=== PATIENT | female | born 1975 | race Caucasian/White ===

== ENCOUNTER → 2021-12-05 15:14 | Outpatient (BNVA) | payer OTHER, SELFPAY | PROVIDERS: PCP Internal Medicine; Visit Provider Hospitalist | DX: R06.00 Dyspnea, unspecified (principal); R07.9 Chest pain, unspecified | CPT/HCPCS: 94618 ==

== ENCOUNTER → 2021-12-08 08:31 | Outpatient (REF) | payer OTHER, SELFPAY ==
--- NOTE | 2021-12-08 08:42 | ECG_ITS ---
Test Reason : cp Blood Pressure : / mmHG Vent. Rate : 059 BPM Atrial Rate : 059 BPM P-R Int : 130 ms QRS Dur : 078 ms QT Int : 386 ms P-R-T Axes : -10 071 045 degrees QTc Int : 382 ms Sinus bradycardia Otherwise normal ECG No previous ECGs available Referred By: Bo Izquierdo Electronically Signed By:PRESLEY VELAZQUEZ MD
== END ==
LOC: HO.CARD 08:31
PROVIDERS: PCP Internal Medicine; Visit Provider Hospitalist
DX: R07.9 Chest pain, unspecified (principal)
CPT/HCPCS: 93005

== ENCOUNTER 2022-01-10 13:45 | Outpatient (REF) | payer OTHER, SELFPAY ==
--- NOTE | 2022-01-10 | PFT_ITS ---
FLOWS: FEV1 94% of predicted at 2.51 L. FVC 88% of predicted at 2.93 L. FEV1 to FVC ratio of 0.86. No bronchodilator response. LUNG VOLUMES: Total lung capacity 93% of predicted at 4.45 L. Residual volume 77% of predicted at 1.29 L. Slow vital capacity 102% of predicted at 3.16 L. Expiratory reserve volume 65% of predicted at 0.64 L. Diffusion capacity is normal. IMPRESSION: No obstructive or restrictive ventilatory defect. No bronchodilator response. Essentially, normal pulmonary function test. Kodi Yap MD AP/MODL / [id number]
[2022-01-10 15:41] LABS: MANUAL DIFF FLAG NO
[2022-01-10 15:48] LABS: Basophils Percent Auto 0.3 % (0-2); Eosinophils Absolute Auto 0.2 X10*3/uL (0.0-0.4); Eosinophils Percent Auto 1.8 % (0-4); Hematocrit 41.9 % (37.0-47.0); Hemoglobin 13.3 g/dl (12.0-16.0); Imm Gran Abs Auto 0.02 X10*3/uL (0.00-0.03); Imm Gran Pct Auto 0.2 % (0.0-0.4); Lymphocytes Absolute Auto 3.5 X10*3/uL (1.2-4.9); Lymphocytes Percent Auto 38.4 % (20-40); Mean Corpuscular HGB Conc 31.7 g/dl (31.0-35.0); Mean Corpuscular Hemoglobin 25.7 pg (27.0-33.0); Mean Platelet Volume 11.1 fL (9.4-12.3); Monocytes Absolute Auto 0.6 X10*3/uL (0.1-1.2); Monocytes Percent Auto 6.8 % (2-11); Neutrophils Absolute Auto 4.7 x10*3/uL (2.0-8.3); Neutrophils Percent Auto 52.5 % (45-73); Platelet Count 246 X10*3/uL (160-400); Red Blood Count 5.17 X10*6/uL (4.20-5.50); Red Cell Distribution Width 13.2 % (11.0-16.0)
[2022-01-10 16:06] LABS: D Dimer High Sensitivity < 150 NG/ML
[2022-01-10 16:11] LABS: Anion Gap 12 (12-20); Blood Urea Nitrogen 15 mg/dL (9-16); Calcium 9.5 mg/dL (8.4-10.2); Carbon Dioxide 26 mmol/L (22-29); Chloride 104 mmol/L (96-108); Estimated Glomerular Filt Rate > 60; Glucose Random 98 mg/dL (60-115); Potassium 4.2 mmol/L (3.3-5.1); Sodium 138 mmol/L (135-145)
[2022-01-10 16:30] LABS: Erythrocyte Sedimentation Rate 7 MM/HR (0-20)
[2022-01-11 11:07] LABS: Immunoglobulin E 31 kU/L (<OR=114)
== END 2022-01-10 13:46 | disposition home or self-care (01) ==
LOC: HO.RESP 13:45
PROVIDERS: PCP Internal Medicine; Visit Provider Hospitalist
DX: R06.00 Dyspnea, unspecified (principal); R07.9 Chest pain, unspecified
CPT/HCPCS: 36415; 80048; 82785; 85025; 85379; 85652; 94060; 94727; 94729

== ENCOUNTER 2022-02-03 12:52 | Outpatient (REF) | payer OTHER, SELFPAY ==
--- NOTE | ~2022-02-03 | CT_ITS ---
EXAMINATION: CT CHEST WITHOUT CONTRAST CLINICAL INFORMATION: Dyspnea. COMPARISON: None. TECHNIQUE: Multidetector volumetric CT imaging of the chest was done. Axial MIP volume rendering provided. Sagittal and coronal reformatted images were obtained. This CT examination was performed using dose optimization techniques as appropriate, variously including the following: *Automated exposure control *Adjustment of mA and/or kV according to patient size (this includes techniques or standardized protocols for targeted exams where dose is matched to indication/reason for exam; i.e. extremities or head) *Use of iterative reconstruction technique DLP: 299 mGy-cm FINDINGS: BOAT LOADER: Unremarkable. LUNGS: The lungs are well expanded and clear of acute process. There is a 2 mm nodule right upper lobe peripherally based axial image 181/9, a 4 mm nodule left major fissure axial image 258/9, a 3 mm nodule right lower lobe pleural-based axial image 328/9. MEDIASTINUM: The thyroid lobes are symmetrical and normal. The central trachea and the bronchi are widely patent. The heart size and the great vessels are normal caliber. There is no pericardial effusion. No abnormal-sized mediastinal or hilar lymph nodes seen. PLEURA: There is no pleural effusion. No pleural mass or thickening. AXILLA: There are small shotty bilateral axillary lymph nodes. The chest wall is unremarkable. UPPER ABDOMEN: There are small hypodense lesions visualized in the spleen and appear unremarkable. There is no intrahepatic ductal dilatation. Visualized spleen, pancreas and bilateral adrenal glands are unremarkable. OSSEOUS STRUCTURES: No lytic or sclerotic process seen. CT/CT chest wo con IMPRESSION: Small pulmonary nodules and left intrafissural nodule likely a lymph node. The lungs are clear. Fleischner guidelines were followed.
== END 2022-02-03 12:53 | disposition home or self-care (01) ==
LOC: HO.CT 12:52
PROVIDERS: Visit Provider Hospitalist
DX: R07.9 Chest pain, unspecified (principal); R06.00 Dyspnea, unspecified
CPT/HCPCS: 71250

== ENCOUNTER → 2022-02-24 14:26 | Outpatient (BNVA) | payer OTHER, SELFPAY | PROVIDERS: PCP Internal Medicine; Visit Provider Hospitalist | DX: R06.00 Dyspnea, unspecified (principal); R07.9 Chest pain, unspecified ==

== ENCOUNTER → 2022-08-28 08:20 | Outpatient (BNVA) | payer OTHER, SELFPAY | PROVIDERS: PCP Internal Medicine; Visit Provider Hospitalist | DX: R06.00 Dyspnea, unspecified (principal); R00.0 Tachycardia, unspecified; R91.1 Solitary pulmonary nodule | CPT/HCPCS: 94618 ==

== ENCOUNTER → 2022-10-04 10:40 | Outpatient (REF) | payer OTHER, SELFPAY ==
--- NOTE | 2022-10-04 10:45 | CA_ITS ---
Acquisition Time: 2022-10-04 10:49:37 Total Exercise Time: 00:06:00 Test Indications: TACHYCARDIA, SOB Medications: SEE CHART Protocol: GLENN Max HR: 181 BPM 105% of Pred: 171 BPM Max BP: 164/066 mmHG Max Work Load: 7.0 METS Exercise stress test with exercise 6 min of Glenn protocol, achieving 95% MPHR, 7 METs, with fatigue and mild to moderate sob with request to stop, no chest discomfort, without arrythmia during exercise, with few isolated PVCs noted in recovery, with normotensive response to exercise, without EKG changes meeting criteria for ischemia. Echo images obtained at rest and immediately post peak exercise. Definity contrast used. In recovery her breathing improved to normal. Test reviewed with Dr Magallanes. Referred By: Bo Izquierdo Overread By: YAHIR LAUREN
== END ==
LOC: HO.CARD 10:40
PROVIDERS: Visit Provider Hospitalist
DX: R06.00 Dyspnea, unspecified (principal)
CPT/HCPCS: 93350; Q9957

== ENCOUNTER → 2022-10-23 08:12 | Outpatient (REF) | payer OTHER, SELFPAY ==
--- NOTE | 2022-10-23 08:15 | CA_ITS ---
Transthoracic Echocardiogram Patient (Last, First, Middle): Katty Boss, Gender: Female Date of : 1975 Age: 47 Procedure Date: 10/23/2022 Procedure Type: Transthoracic Echocardiogram Location: OP Height: 157.48 cm Weight: 63.5 kg BSA: 1.64 m2 Heart Rate: bpm BP: 122 / 88 mmHg Injector Assembler: EDUAR Referring MD: Bo Izquierdo MD Symptoms: I27.20 - Pulmonary hypertension, unspecified Study Quality: Adequate ECG Rhythm: Sinus Conclusions: - The left ventricular systolic function is normal. The calculated ejection fraction is 58% by biplane method. - No obvious valvular pathology seen on this study. Findings Left Ventricle Normal left ventricular cavity size. There is normal left ventricular wall thickness. The left ventricular systolic function is normal. The calculated ejection fraction is 58% by biplane method. There is no evidence of regional wall motion abnormalities. Diastolic function is normal for age. LV peak GLS -18.7%. Right Ventricle Normal right ventricular cavity size and systolic function. Atria Both atria are normal in size. Aortic Valve There is a normal trileaflet aortic valve. There is no aortic valve stenosis. There is no aortic valve regurgitation. Mitral Valve The mitral valve appears normal. There is no mitral valve regurgitation. There is no mitral valve stenosis. Pulmonic Valve The pulmonic valve is likely normal. Tricuspid Valve Normal tricuspid valve structure. There is trace tricuspid valve regurgitation. There is no evidence of pulmonary hypertension. Great Vessels The aortic annulus, sinuses of valsalva, and asc aorta are normal in size. Venous The inferior vena cava is normal in size and collapses greater than 50% with inspiration. Pericardium/Pleural There is no evidence of pericardial effusion. Prior Study Comparison No prior study available for comparison. Recommendations, Care & Conclusions No obvious valvular pathology seen on this study. Measurements 2D Linear Measurements IVSd: 0.64 0.6-0.9/0.6-1.0 cm LVIDd: 4.78 3.9-5.3/4.2-5.9 cm LVIDd Index: 2.91 2.4-3.2/2.2-3.1 cm/m2 LVIDs: 2.85 2.0-3.6 cm LVPWd: 0.71 0.7-1.1 cm LA Diam: 3.00 2.7-3.8/3.0-4.0 cm LAIDs Index: 1.83 1.5-2.3 cm/m2 LV Mass: 125.74 67-162/88-224 g LV Mass Index: 76.67 43-95/49-115 g/m2 LVOT Diam: 2.00 3.0+(-)1.3 cm 2D Systolic Function EF 4C: 57.30 >55% EF 2C: 58.40 >55% EF BiP: 57.70 >55% Mitral Valve MV Pk E: 0.62 MV PK A: 0.49 MV Decel Time: 192.00 E/A: 1.30 E'Lateral: 11.00 E'Medial: 7.72 E/E' Med: 8.00 E/E' Lat: 5.60 PHT: 56.00 MVA PHT: 3.93 Decel [place]: 3.22 Aortic Valve AoV Pk Marshall: 1.25 AoV Mn Marshall: 0.94 AoV VTI: 0.30 AoV Pk Grad: 6.00 Aov Mn Grad: 4.00 ALEXANDER Cont.VTI: 2.17 LVOT LVOT Pk Marshall: 0.91 LVOT Mn Marshall: 0.59 LVOT VTI: 0.21 LVOT Pk Grad: 3.00 LVOT Mn Grad: 2.00 LVOT Diam: 2.00 LVOT Area: 3.14 Diastolic Function MV Pk E: 0.62 MV Pk A: 0.49 E/A: 1.30 E'Medial: 7.72 E/E' Med: 8.00 E' Laterial: 11.00 E/E' Lat: 5.60 Right Ventricle TAPSE (mm): 19.70 Tricuspid Valve TR Pk Marshall: 1.59 TR Pk Grad: 10.00 RA Press: 3.00 RVSP: 13.00 Great Vessels Aorta Sinus of Valsalva: 3.04 2.0-3.[address] [place]: 2.44 1.7-3.4 cm Ao Asc: 2.70 2.1-3.4 cm Ao Arch: 2.20 Updated in Other Vendor System with Status of Final Adrian Magallanes MD electronically signed on 10/23/2022 4:06:52 PM with status of Final
== END ==
LOC: HO.CARD 08:12
PROVIDERS: Visit Provider Hospitalist
DX: I27.20 Pulmonary hypertension, unspecified (principal)
CPT/HCPCS: 93306; 93356

== ENCOUNTER 2023-02-22 12:44 | Outpatient (REF) | payer OTHER, SELFPAY ==
--- NOTE | ~2023-02-22 | CT_ITS ---
EXAMINATION: CT CHEST WITHOUT CONTRAST CLINICAL INFORMATION: Follow-up pulmonary nodule COMPARISON: Previous chest CT January 2022 TECHNIQUE: Multidetector volumetric CT imaging of the chest was done. Axial MIP volume rendering provided. Sagittal and coronal reformatted images were obtained. This CT examination was performed using dose optimization techniques as appropriate, variously including the following: *Automated exposure control *Adjustment of mA and/or kV according to patient size (this includes techniques or standardized protocols for targeted exams where dose is matched to indication/reason for exam; i.e. extremities or head) *Use of iterative reconstruction technique DLP: 135 mGy-cm FINDINGS: PSYCHIATRIC TECHNICIAN ASSISTANT: Unremarkable LUNGS: Small calcified pulmonary nodules in the right lower lobe measuring 3 mm axial image 286 and right upper lobe measuring 2 mm axial image 156 series 5 are stable. 4 mm peripheral or subpleural left lower lobe nodule adjacent to the fissure axial image 220 series 5 is stable and probably represents a subpleural lymph node. No new pulmonary nodule. No emphysema, interstitial lung disease or bronchiectasis. MEDIASTINUM: The mediastinum is normal. CORONARY ARTERY CALCIFICATION: None visualized on this study. PLEURA: There is no pleural effusion. No pleural mass or thickening. AXILLA: No lymphadenopathy. UPPER ABDOMEN: Stable small low-attenuation liver lesions. OSSEOUS STRUCTURES: Unremarkable. CT/CT chest wo IV con IMPRESSION: Stable small calcified and noncalcified pulmonary nodules. According to Fleischner criteria, no additional follow-up recommended. Fleischner guidelines were followed.
== END 2023-02-22 12:45 | disposition home or self-care (01) ==
LOC: HO.CT 12:44
PROVIDERS: PCP Internal Medicine; Visit Provider Hospitalist
DX: R91.1 Solitary pulmonary nodule (principal)
CPT/HCPCS: 71250

== ENCOUNTER → 2023-03-06 15:18 | Outpatient (BNVA) | payer OTHER, SELFPAY | PROVIDERS: PCP Student in an Organized Health Care Education/Training Program; Visit Provider Hospitalist | DX: U07.1 COVID-19 (principal); R06.00 Dyspnea, unspecified; R00.0 Tachycardia, unspecified; R91.1 Solitary pulmonary nodule; Z87.891 Personal history of nicotine dependence | CPT/HCPCS: 99212 ==

== ENCOUNTER 2025-01-13 14:14 | Outpatient (AMB) | payer OTHER, SELFPAY ==
--- NOTE | 2025-01-13 14:35 | A.OFFVIS_ITS ---
Vital Signs 01/13/25 14:37 Weight 153 lb 3.54 oz BP 122/76 Blood Pressure Location Lt brachial Position Sitting Pulse 104 H Pulse Source Pulse Oximeter Pulse Oximetry (%) 99 Oxygen Delivery Method Room Air Intake Visit Reasons: Asthma Allergies No Known Allergies Allergy (Verified 01/13/25 14:39) Medication List - Last Reconciled 01/13/25 by Ni Whitfield LPN fluticasone propion-salmeterol 115-21 mcg/actuation (Advair HFA) 2 puffs inhalation Q12H 30 days lorazepam 1 mg PO DAILY PRN HPI Comments Details: The patient is a 49 year-old woman presenting with ongoing progressive dyspnea on exertion. Patient states that for the loss several years she has been noticing increasing breathlessness specially when going up a flight of stairs. Although, she has felt her symptoms have gotten worse in the last year. People around her have started commenting that she appears to be short of breath even with minimal activity. She denies ever having a diagnosis of asthma or any other obstructive airway disease. She has never had to use inhalers is never had a cardiac condition that she is aware of. Therefore the patient was referred to Pulmonary for further evaluation. She did have a chest x-ray done at [facility]. We did personally reviewed the x-ray demonstrating no acute disease. The patient denies any exposures of any mold or chemicals or fumes or toxins or farm Exposures. 01/10/2022 the patient is here for a pulmonary follow-up visit. She continues to have the dyspnea on exertion. It is uncomfortable for her. The patient did have pulmonary function studies today which we personally reviewed. Patient overall had relatively normal pulmonary function capacity. although, both her forced vital capacity and the total lung capacity which is slightly low. The patient did have a chest x-ray that I personally reviewed without any significant disease. At this point the patient is concerned that she continues to be symptomatic. We did do blood work including a D-dimer that was negative. The patient was noted have slight decrease in oxygen supplementation when ambulating. Therefore based on her ongoing symptoms and did nondiagnostic results of both the x-ray and PFTs I will request a CT scan of the chest to better address her symptoms. Also reviewed her EKG. No significant findings noted. The patient will benefit from a cardiac evaluation for undergoing a cardiopulmonary exercise tolerance test in case of the etiology of her symptoms are still unclear. 02/24/2022 the patient is here for a pulmonary follow-up visit. Overall she is doing better. Her shortness of breath has slowly improved. She continues to exercise regularly without significant limitations of her breathing. we did review her pulmonary function studies which were reassuring without any obstructive nor restrictive ventilatory defects. The patient also underwent a CT scan of the chest with demonstrating normal lung parenchyma. However, she did have a small subcentimeter pulmonary nodule that will need follow-up in a year's time. Patient will continue exercising regularly. If the patient has persistent symptoms or any worsening symptoms, then we can consider a cardiopulmonary stress test to further address the issues. In the meantime though I am reassured that her symptoms are better and I am hopeful that she will continue improving. 08/28/2022 the patient is here for pulmonary follow-up visit. Initially she was feeling better with less shortness of breath. When she started developing worsening shortness of breath again. Typically with minimal activity. Specially when going up a flight of stairs or ill. She has moderate shortness of breath the point that she needs to stop she is doing. She also has a hard time speaking when she is walking because she gets also winded. She was concern for lung cancer. Again, we did review her CT scan of the chest demonstrating no significant parenchymal disease in the only finding is small subcentimeter pulmonary nodules. The patient will have another CT scan sometime in February. During the visit we did go for brief walking oximetry in quickly a heart rate went up to 146 beats per minute just going up few steps. The patient was visibly winded with the a dyspnea score of 7/10. The patient has not had a cardiac workup. Her pulse ox was stable throughout. The patient does not have any significant wheezing to benefit from any inhaler therapy. I do believe that a cardiac evaluation is warranted and also would consider a cardiopulmonary exercise tolerance test in the near future. 10/09/2022 the patient is here for pulmonary follow-up visit. She recently had her stress echo. In the meantime she continues to have significant shortness of breath when exerting herself. Initially the results were relatively normal on the stress test report. However, I did get a call from Cardiology and also the echo lab that the pictures were suboptimal and they will need to repeat it. In the meantime I did request that her pulmonary pressures are estimated also during her stress test which they will do when his repeated. Also was recommended that she have a formal echocardiogram. Therefore 1 will be requested. He more breathing standpoint the patient is well when she is resting or walking. She walks a few miles a day. It is small when she is exerting herself the becomes limited. When she did have the stress test she would only meet a MET of 7 which is that low level. The patient also will start a respiratory inhaler to see if this provides some relief. She is also going to start providing Jovanni interval training to increase her aerobic capacity. Once she does have the repeat stress echo and also her formal echo will follow-up with results. 03/06/2023 the patient is here for a pulmonary follow-up visit. The patient overall is doing about the same. Still complaining of dyspnea with minimal activity he had also significant palpitations. The patient did follow-up with Cardiology. We do not hyperinflation as of yet. The patient is scheduled to [facility] a cardiopulmonary exercise stress test. I do believe that this will be helpful trying to delineate her symptoms. I will not provide her any medications at this time specially until after the study. She continues to have some degree of daytime drowsiness. She already has sleep study demonstrating no evidence of any sleep apnea to wire about. She also had a repeat CT scan of the chest demonstrating stable pulmonary nodules which is reassuring. The patient also underwent pulmonary function studies demonstrating no significant disease. I did recommend pulmonary rehabilitation at this time specially for post COVID syndrome. Will plan to follow-up in 6 months time. 01/13/2025 the patient is here for pulmonary follow-up visit. The patient is still complaining of dyspnea on exertion. Even with minimal activities specially will go a flight of stairs. She gets very winded. Again she had a cardiac evaluation at some point. We also did a full workup without any significant findings. Her cardiopulmonary exercise tolerance test suggested a respiratory reserve limitation. But when we went on our own brief walking oximetry up the stairs she does get dyspneic with dyspnea score 6/10 and heart rate does go up to about 150 beats per minute with minimal activity. Therefore need to consider underlying exercise-induced pulmonary hypertension as a potential diagnosis. Will go ahead and request blood work including a BNP to see this evidence of any cardiac strain. [facility] Medical History (Updated 01/13/25 @ 14:46 by Bo Izquierdo MD) COVID-19 Tachycardia Pulmonary nodule Dyspnea Chest pain Social History Patient Tobacco Use Status: Former Tobacco user Tobacco use type: Cigarette Years Smoked: 5 Years Review of Systems Const Denies night sweats ENT Denies change in voice, Denies lip swelling, Denies mouth pain, Reports nasal congestion and Denies tongue swelling Card Denies chest pain and Reports dyspnea on exertion Resp Denies cough and Reports dyspnea on exertion GI Denies abdominal pain Musc Denies no additional complaints Neuro Denies Neuro-related abnormal movements Psych Denies no additional complaints Liborio/Lymph Denies easy bleeding and Denies lymphadenopathy Aller/Immun Denies lip swelling and Denies tongue swelling Physical Exam Vital Signs: Last Vital Signs Pulse 104 H 01/13/25 14:37 BP 122/76 01/13/25 14:37 Pulse Ox 99 01/13/25 14:37 Oxygen Delivery Method Room Air 01/13/25 14:37 Const General: alert Neck Neck: Yes normal visual inspection, Yes full ROM and Yes no lymphadenopathy Chest Chest palpation & inspection: normal inspection of the chest Resp Auscultation: clear to auscultation bilaterally Cardio Rate: regular rate Rhythm: regular rhythm Heart sounds: S1 normal heart sound present and S2 normal heart sound present Skin General skin exam: rashes and/or lesions noted Assessment & Plan Assessment & Plan (1) Dyspnea: Code(s): R06.00 - Dyspnea, unspecified Category: Medical Qualifiers: Dyspnea type: dyspnea on exertion Qualified Code(s): R06.09 - Other forms of dyspnea (2) Tachycardia: Code(s): R00.0 - Tachycardia, unspecified Category: Medical (3) Pulmonary nodule: Code(s): R91.1 - Solitary pulmonary nodule Category: Medical Plan bloodwork and ddimer start Airsupra as needed Further evaluation for tachycardia warranted. ?exercise induced pulmonary HTN, diastolic dysfuction, anemia, SVT, post covid POTS follow-up in 3 months Orders: Orders Erythrocyte Sedimentation Rate Today R00.0 - Tachycardia, unspecified, R06.09 - Other forms of dyspnea D Dimer High Sensitivity Today R00.0 - Tachycardia, unspecified, R06.09 - Other forms of dyspnea Complete Blood Count Auto Diff Today R00.0 - Tachycardia, unspecified, R06.09 - Other forms of dyspnea Basic Metabolic Panel Today R00.0 - Tachycardia, unspecified, R06.09 - Other forms of dyspnea TSH reflex Free T4 Today R00.0 - Tachycardia, unspecified B Type Natriuretic Peptide Today R00.0 - Tachycardia, unspecified Medications: New albuterol-budesonide 90-80 mcg/actuation (Airsupra) 2 inhalations inhalation BID PRN 10.7 grams 11RF shortness of breath Coding Level of Care Code Est Pt Level 4 (04928) Diagnoses Dyspnea on exertion R06.09 Dyspnea type: dyspnea on exertion Tachycardia R00.0 Pulmonary nodule R91.1 Time Spent (min) 18
[2025-01-13 14:37] VITALS: BP 122/76; PULSE 104; O2SAT 99
--- OUTSIDE RECORDS SUMMARY | 2025-01-13 17:59 | XMS_ITS | Patient Health Record ---
Author Organization [facility] Address [address] [place] [address] Care Team Providers Care Metrology Engineer Name Role Phone Fritz Gusman MD, Crystal Coleman Primary Care Prov ider Unavailable Clarice Johns Unavailable [phone] Allergies No Known Allergies Reason For Referral No Information Medications Medication SIG (Take, Route, Fr equency, Duration) Notes Start Date End Date Status LORazepam 1 MG 1 tablet at bedtime as needed Orally Once a day Active Work Note . . . Patient off 08/08/22 08/07/2022 Active Omeprazole 20 MG 1 capsule 30 minutes before morning meal Orally Once a day for 30 day(s) Active Social History Tobacco Use: Social History Observation Description Date Details (start date - stop date) Never Smoker NA - NA Tobacco Use/Smoking Question Answer Notes Are you a: nonsmoker Additional Findings: Tobacco Non-User Current no n-smoker Alcohol Screen Question Answer Notes Did you have a drink containing alcohol in the p ast year? Yes Points 0 Interpretation Negative Tobacco use other than smoking: Question Answer Notes Are you an other tobacco user? No Problems Problem Type SNOMED Code ICD Code Onset Dates Problem Status W/U Status Risk Notes Problem [id number] Hallux valgus (acquired), right foot (M20.11) Active confirmed Problem [id number] Osteoarthritis o f right ankle and foot (M19.071) Active confirmed Plan Of Treatment Pending Test Test Name Order Date X ray : Foot, right 3V 06/29/2022 Insurance Providers Payer Name Payer Address Payer Phone Subscriber Number Group Number Insured Name Patient Relationship to Insured Coverage Start Date [facility]age End Date [facility] [address] [place] [phone] [id number] Dom Yap Spouse - patient is the spouse of the insured Medical (General) History Medical History History ICD Code Gastroesophageal reflux disease (GERD) broken bones chicken pox Surgical History Surgery Date(Month/Year) tubal ligation 11/12/2004 Adbomnioplasty 2021
--- OUTSIDE RECORDS SUMMARY | 2025-01-13 17:59 | XMS_ITS | Clinical Summary ---
Author Organization [facility] [address] [facility] Address [address] [place] [address] Phone Care Team Providers Care Social Worker Name Role Phone Danyelle Barba MD Primary Care Provider Social History Tobacco Use Types Packs/Day Years Used Date Smoking Tobacco: Never Assessed Comments Unknown Sex and Gender Information Value Date Recorded Sex Assigned at Not on file Legal Sex Female 11:25 AM EDT Gender Identity Not on file Sexual Orientation Not on file Plan of Treatment Health Maintenance Due Date Last Done Comments Breast Cancer Screening 1975 DTaP,Tdap,and Td Vaccines (1 - Tdap) 1992 Hepatitis B Vaccines (1 of 3 - 19+ 3-dose series) 1992 Cervical Cancer Screening: P ap Smear 1994 Pneumococcal Vaccine: 50+ Ye ars (1 of 1 - PCV) 2023 Zoster Vaccines (1 of 2) 2023 COVID-19 Vaccine ( - 2023-2 5 season) 2024 Influenza Vaccine (#1) 2024 Colorectal Cancer Screening: Colonoscopy 09/06/2024 Depression Screening 09/06/2024 HIV Screening 09/06/2024 Hepatitis C Screening 09/06/2024 Social Influencers of Health Screening 09/06/2024 HIB Vaccines Aged Out No longer eligi ble based on patient's age to complete this topic HPV Vaccines Aged Out No longer eligi ble based on patient's age to complete this topic Hepatitis A Vaccines Aged Out No long er eligible based on patient's age to complete this topic IPV Vaccines Aged Out No longer eligi ble based on patient's age to complete this topic MMR Vaccines Aged Out No longer eligi ble based on patient's age to complete this topic Meningococcal ACWY Vaccine Aged Out N o longer eligible based on patient's age to complete this topic Meningococcal B Vacine Aged Out No lo nger eligible based on patient's age to complete this topic Pneumococcal Vaccine: Pediat rics (0 to 5 Years) and At-Risk Patients (6 to 64 Years) Aged Out No longer eligible b ased on patient's age to complete this topic RSV Immunization Patients Un raj 20 months Aged Out No longer eligible b ased on patient's age to complete this topic Varicella Vaccines Aged Out No longer eligible based on patient's age to complete this topic Care Teams Social Worker Relationship Specialty Start Date End Date Danyelle Barba MD [address] [address] PCP - General Internal Medicine 09/05/24
--- OUTSIDE RECORDS SUMMARY | 2025-01-13 17:59 | XMS_ITS | Data Portability ---
Author Organization [facility], Main Office Address [address] [facility] [address] [place] [id number] Care Team Providers Care Mechanical Engineer Name Role Phone JESU CARRILLO Referring Provider JAME HAYDEN Manager Of It JOSEPHINE PÉREZ Primary Care Provider AMANDA STAUFFER Rehabilitation Engineer Assessment Encounter Date Assessment Date Assessment LastModified by Organization Details LastModified Time 09/26/2022 09/26/2022 This service was provided using telemedicine. Patient consented to video & audio visit Patient was located in the [facility]. Provider was located in the office. No other persons participated in the telemedicine visit except for the patient unless otherwise indicated here. {{}} Total time of visit was 28 minutes. [email or web address] Not available 09/26/2022 16:18:29 07/25/2023 07/25/2023 Katty presents to the office for cough, congestion, and sob. Patient reports of having congestion, fatigue, cough, and SOB x3 days. Has no cardiac and pulm condition hx. Denies fever, chills, v/n. Feels out of breath when walking or talking for a while. Improvements in symptoms with tylenol and ibuprofen. No sick contacts. In office flu and covid were negative. physical exam revealed wheezing in bilateral lower lobes, diminished breath sounds and tenderness to palpation of the sinuses. Based off history and physical, suspecting possible pneumonia or viral infection. Will order a chest xray and give zithromax-zpack , if negative will call pt and cancel zpack. Discussed signs/symptoms that would warrant an ER visit. Discussed to complete medication course. Discussed to call the office if symptoms do not improve/worsen. [email or web address] Not available 07/25/2023 15:38:05 Plan of Treatment Reminders Order Date Submit Date Provider Last Modified By Organization Details Last Modified Time Details Appointments PE EST 2024 08:15A M JOSEPHINE PÉREZ MD Not available Not available Not available Lab lipid panel, serum 2023 024 [email or web address] [facility], [address] [place], [address], 07/07/2024 09:52:44 BMP, serum or plasma 2023 024 BECK [facility], [address], [place], [address], 04/08/2024 14:40:56 CBC w/ auto diff 2023 024 BECK [facility], [address], [place], [address], 04/08/2024 14:40:56 TSH, ultra- sensit helio, serum 2023 024 [email or web address] [facility], [address], [place], [address], 07/07/2024 09:52:44 rapid SARS CoV 2 Ag, QL IA, respir atory specim en 2022 023 [email or web address] In-Office Order, Internal Use Only DO Not Attach Compendium DO Not Attach Compendium, Do Not Delete/merge, [id number] 07/25/2023 14:19:07 rapid flu (A+B) 2022 023 BECK In-Office Order, Internal Use Only DO Not Attach Compendium DO Not Attach Compendium, Do Not Delete/merge, [id number] 07/25/2023 14:39:22 magnes ium, serum or plasma 2021 022 BECK [facility], [address] [facility], [facility], [place], [place], [address], 09/29/2022 20:43:19 BMP, serum or plasma 2021 022 BECK [facility], [address], [address], [place], [address], 09/29/2022 20:43:18 TSH, serum or plasma 2021 022 BECK [facility], [address], [address], [place], [address], 09/29/2022 20:53:58 Referral None record ed. Procedures colono scopy screen ing (PROC) 2023 024 [email or web address] Not available 04/08/2024 15:55:24 Surgeries None record ed. Imaging XR, chest, 2 view 2023 024 [email or web address] Not available 04/22/2024 09:16:17 XR, chest, 2 view - cough, conges tion, wheezi ng x3 days. rule in/out pneumo chanelle 2022 023 [facility], [address] [facility], [place], [address], 07/25/2023 15:24:35 Medication Orders Zithro max Z-Chris 250 mg tablet 2022 023 [email or web address] [id number], [address] [place], [address], 04/08/2024 14:18:01 flucon azole 150 mg tablet 2022 023 [id number], [address] [place], [address], 07/25/2023 13:03:50 famoti dine 20 mg tablet 2022 023 [id number], [address] [place], [address], 07/25/2023 13:06:04 metopr olol tartra te 25 mg tablet 2022 023 [email or web address] [id number], [address] [place], [address], 04/03/2023 08:45:01 predni sone 20 mg tablet 2021 022 [email or web address] [id number], [address] [place], [address], 12/18/2022 13:11:30 Patient TargetsNo targets recorded. Patient Instructions Encounter Date Encounter Id Patient Instructions Last Modified By Organization Details Last Modified Time 09/26/2022 [id number] Medications (OTC , herbal therapies, supplements) reviewed and reconciled with patient and or caregiver, including potential side effects, drug interactions, instructions, and the consequences of not taking medication. Reviewed potential barriers to medication adherence, such as side effects from medication or cost of medication. [email or web address] Not available 09/26/2022 16:37:16 12/18/2022 [id number] Patient will follow up and keep appointment as scheduled. pmadden Not available 12/18/2022 14:04:37 04/03/2023 [id number] Well Visit, Ages 18 to 65: Care Instructions Not available 04/03/2023 09:53:30 medical record request* [email or web address] Not available 04/03/2023 13:19:23 04/08/2024 [id number] Well Visit, Ages 18 to 65: Care Instructions Not available 04/08/2024 14:40:39 Reason for Referral None Reported. Results Created Date Observation Date Name Description Value Unit Range Abnormal Flag Note LastModifiedBy Organization Detail LastModifiedTime 09/29/20 22 09/29/2022 BASIC METAB OLIC PANEL glucose 103 mg/dL (70-99 ) high Not Available [facility] (Centralized Electronic Ordering - All Locations) Patient Can Go To The Location Of Their Choice, [id number] 09/29/2022 20:43:18 09/29/20 22 09/29/2022 BASIC METAB OLIC PANEL BUN 17 mg/dL (6-20) Not Available [facility] (Centralized Electronic Ordering - All Locations) Patient Can Go To The Location Of Their Choice, [id number] 09/29/2022 20:43:18 09/29/20 22 09/29/2022 BASIC METAB OLIC PANEL creatinine 0.7 mg/dL (0.5-1 .0) Not Available [facility] (Centralized Electronic Ordering - All Locations) Patient Can Go To The Location Of Their Choice, 09/29/2022 20:43:18 09/29/20 22 09/29/2022 BASIC METAB OLIC PANEL sodium 139 mmol/ L (133-1 45) Not Available [facility] (Centralized Electronic Ordering - All Locations) Patient Can Go To The Location Of Their Choice, 09/29/2022 20:43:18 09/29/2009/29/2022 BASIC METAB OLIC PANEL potassium 4.0 mmol/ L (3.6-5 .2) Not Available [facility] (Centralized Electronic Ordering - All Locations) Patient Can Go To The Location Of Their Choice, 09/29/2022 20:43:18 09/29/20 22 09/29/2022 BASIC METAB OLIC PANEL chloride 102 mmol/ L (98-10 7) Not Available [facility] (Centralized Electronic Ordering - All Locations) Patient Can Go To The Location Of Their Choice, 09/29/2022 20:43:18 09/29/20 22 09/29/2022 BASIC METAB OLIC PANEL bicarbonate 27 mmol/ L (22-29 ) Not Available [facility] (Centralized Electronic Ordering - All Locations) Patient Can Go To The Location Of Their Choice, [id number] 09/29/2022 20:43:18 09/29/20 22 09/29/2022 BASIC METAB OLIC PANEL anion gap 10 (4-17) Not Available [facility] (Centralized Electronic Ordering - All Locations) Patient Can Go To The Location Of Their Choice, 09/29/2022 20:43:18 09/29/20 22 09/29/2022 BASIC METAB OLIC PANEL calcium 8.8 mg/dL (8.6-1 0.5) Not Available [facility] (Centralized Electronic Ordering - All Locations) Patient Can Go To The Location Of Their Choice, [id number] 09/29/2022 20:43:18 09/29/20 22 09/29/2022 BASIC METAB OLIC PANEL estimated GFR creatinine 108 mL/mi n/1.7 3_M2 Creat inine based estim ated glome rular filtr ation (eGFR ) in adult s is calcu lated using the Natio nal Kidne y Found ation recom keo d 2020 CKD-E PI equat ion. Estim ates GFR from serum creat inine , age and sex. Not Available [facility] (Centralized Electronic Ordering - All Locations) Patient Can Go To The Location Of Their Choice, [id number] 09/29/2022 20:43:18 09/29/2009/29/2022 MAGNE SIUM magnesium 2.0 mg/dL (1.6-2 .3) Not Available [facility] (Centralized Electronic Ordering - All Locations) Patient Can Go To The Location Of Their Choice, [id number] 09/29/2022 20:43:19 09/29/2009/29/2022 TSH WITH REFLE X TO FT4 TSH 0.92 uIU/m L (0.4-4 .2) Not Available [facility] (Centralized Electronic Ordering - All Locations) Patient Can Go To The Location Of Their Choice, [id number] 09/29/2022 20:53:58 07/25/20 23 07/25/2023 rapid flu (A+B) Flu A negati ve Not Available In-Office Order Internal Use Only DO Not Attach Compendium DO Not Attach Compendium, Do Not Delete/merge, [id number] 07/25/2023 13:11:58 07/25/20 23 07/25/2023 rapid flu (A+B) Flu B negati ve Not Available In-Office Order Internal Use Only DO Not Attach Compendium DO Not Attach Compendium, Do Not Delete/merge, [id number] 07/25/2023 13:11:58 07/25/20 23 07/25/2023 rapid SARS CoV 2 Ag, QL IA, respi rator y speci men RAPID SARS COV 2 negati ve Not Available In-Office Order Internal Use Only DO Not Attach Compendium DO Not Attach Compendium, Do Not Delete/merge, [id number] 07/25/2023 13:11:57 04/03/20 23 03/08/2023 MAMMO , scree winter, bilat eral No observ ation record ed. [facility] [employer] [facility] [address] [place], [address], 04/03/2023 10:02:14 07/25/20 23 07/25/2023 XR, chest , 2 view Chest 2 Views Fronta l and Lat Reason : pneumo chanelle, cough, conges tion, wheezi ng x3 days. r o PNA COMPAR COREY: 2020. FINDIN GS: LINES AND TUBES: None. LUNGS AND PLEURA : No focal consol idatio n. Normal pulmon angie vascul arity. No pleura l effusi on. No pneumo thorax . HEART, MEDIAS TINUM AND UBALDO: Unchan ged cardio medias tinal silhou ette. BONES AND SOFT TISSUE S: No acute abnorm ality. IMPRES BRYAN: No acute abnorm ality. WSN: [id number] Orderi ng Physic lindsey: Binta Booth Dictat ed By: Nabil Segura MD er Dictat ed Date/T amina: 3:21 pm Review ed By: Nabil Segura MD er Signed By: Nabil Segura MD er Signed Date/T amina: 3:21 pm Transc ribed By: EBONY Transc ribed Date/T amina: 3:19 pm Patien t Class: Outpat ient [email or web address] [facility] (Outpt Imaging) [address] [place], [address], 07/25/2023 15:36:23 07/25/20 23 07/25/2023 XR, chest , 2 view No observ ation record ed. [email or web address] [facility] [address] [place], [address], 07/27/2023 09:30:42 Result Notes None recorded. Problems Name Problem SNOMED Code Status Onset Date Resolution Date Notes Provider Name and Address Organization Details Recorded Time Screenin g for malignan t neoplasm of cervix Completed 201109/20/2016 RECORDED 04/15/20 12 1:24PM BY FRANCHESCA MAN, OFFICE VISIT Franchesca Man, [place] null, [facility] 6 15:59:04 Neck pain 10992350 Completed 201109/20/2016 IMPRESSI ON: NOW DAILY FOR ONE WEEK, WILL TX WITH FLEXERIL AND START PT; RECORDED 04/15/20 12 1:24PM BY FRANCHESCA MAN, OFFICE VISIT [place] Mcnair, [facility] 6 15:59:29 Follow-u p encounte r Completed 201109/20/2016 RECORDED 07/31/20 12 3:13PM BY JENNA BEARDEN MA, TRANSITI ON OF CARE [place] Mcnair, [facility] 6 15:59:23 Headache 47610206 Completed 201101/08/2017 IMPRESSI ON: PT WITH CONTINUE D DAILY HEADACHE S, COME ON LATER IN [facility], NOW WITH DAILY NECK PAIN FOR THE PAST WEEK. NO VISION ABN, FEELS TIRED AND TINGLING IN FACE BUT STARTED WHEN THE TOPAMAX STARTED. FEELS TIRED WELL. WILLG ET MRI OF HEAD IN 3 DAYS, THEY REFUSED MRA BUT MRI SHOULD BE ENOUGH. WILL IMAGE SINCE NEW HEADACHE S BUT MOST LIKELY FROM NECK PAIN; RECORDED 04/15/20 12 1:24PM BY FRANCHESCA MAN, OFFICE VISIT Crystal mcintyre [facility] 7 16:01:16 Malaise and fatigue 405829145 Completed 201101/08/2017 IMPRESSI ON: TIRED FOR 3 MONTHS, NOT EATING BREAKFAS T, HAVING SOME TENSION HEADACHE S, NOT ENOUGH PROTEIN, EAT 5 SMALL MEALS, CHECK LABS, EXERCISE , WATER, FOLLOW UP 3 MONTHS; RECORDED 04/15/20 12 1:24PM BY FRANCHESCA MAN, OFFICE VISIT Crystal mcintyre [facility] 7 16:01:21 Motion sickness 96170378 Completed 201201/08/2017 RECORDED 02/14/20 13 2:48PM BY CRYSTAL Sher MD, PHONE ENCOUNTE R Crystal mcintyre [facility] 7 16:01:30 Administ ration of bacteria l and viral vaccine Completed 200705/26/2014 RECORDED 01/17/20 08 3:24PM BY SEGUNDO JUAREZ MA, OFFICE VISIT Not Available [facility] 4 13:40:28 Adult health examinat ion Completed 201109/20/2016 IMPRESSI ON: PAP IS UTD, SHOULD DO SOME EXERCISE ; RECORDED 04/15/20 12 2:27PM BY CRYSTAL Sher MD, OFFICE VISIT [place] Mcnair, [facility] 6 15:59:14 Adult health examinat ion Completed 200805/26/2014 RESOLVED DATE: 04/30/20 09; IMPRESSI ON: PAP UTD, EXERCISE MORE; RECORDED 04/30/20 09 3:47PM BY KRISS KOROMA ON/ADDEN DUM [place] Mcnair, [facility] 6 15:59:14 Syncope and collapse 060969488 Completed 201101/08/2017 IMPRESSI ON: SEE HX SOUNDS LIKE VASOVAGA L IN PT DURING A HOT DAY, 2 BEERS, POOR LIQUID INTAKE AND JUST STOOD UP, LABS RECENTLY NL, WILL GET EKG, OK TO DRIVE SINCE HAD PRECIPIT ATING FACTORS, NO SYMPOTMS SINCE, PT OT CALL AND GET SEEN WITH ANY DIZZINES S OR SYNCOPE, WILL PUSH FLUIDS NAD SALTS, SEE ME ONE MONTH, WILL GET MRI OF BRAIN DUE TO SYCOPE AND WEIGHT LOSS; RECORDED 06/12/20 12 4:15PM BY CRYSTAL Sher MD, PHONE ENCOUNTE R Crystal mcintyre [facility] 7 16:01:27 Abnormal weight loss 877532115 Completed 201101/08/2017 IMPRESSI ON: SEE TOP OF NOTE FOR HX, STILL LOSING DESPITE TRYING TO MAINTAIN , NL LABS, NEG CXR, ABDOMINA L US AND PELVIC US INCLUDIN G TRANVAGI NAL. PT WILL BE REFERRED TO GI FOR EVAULATI ON, MOST LIKELY NEEDS UPPER AND LOWER ENDOSCOP Y AND CONSIDER CT OF ABDOMEN AND PELVIS, WILL LET GI DECIDE ON NEXT STEPS. PT WILL DO STOOL GUIAC CARDS SINCE ON MENSES AND DOES NOT WANT EXAM TODAY; RECORDED 06/12/20 12 2:58PM BY CRYSTAL Sher MD, OFFICE VISIT Crystal mcintyre [facility] 7 16:01:19 Candidal vulvovag initis 64170307 Completed 201209/20/2016 RECORDED 05/28/20 13 10:55AM BY JERSON ENCARNACIONBC, NURSE TRIAGE [place] Mcnair [facility] 6 15:59:26 Candidal vulvovag initis 72667061 Completed 201105/26/2014 RECORDED 05/31/20 12 2:43PM BY HUGO ENCARNACION, NURSE TRIAGE [place] Mcnair [facility] 6 15:59:26 Screenin g for malignan t neoplasm of breast Completed 201309/20/2016 RECORDED 04/28/20 14 7:05AM BY CHAGO ARMAS, HISTORIC AL SUMMARY [place] Mcnair [facility] 6 15:59:11 Administ ration of bacteria l and viral vaccine Completed 200706/18/2014 RECORDED 01/17/20 08 3:24PM BY SEGUNDO JUAREZ MA, OFFICE VISIT Not Available [facility] 4 12:10:32 Administ ration of bacteria l and viral vaccine Completed 200706/19/2014 RECORDED 01/17/20 08 3:24PM BY SEGUNDO JUAREZ MA, OFFICE VISIT Not Available [facility] 4 03:32:17 Hypercho lesterol emia 68146007 Completed 01/08/2017 Crystal mcintyre [facility] 7 16:01:14 Lymphade nopathy 71562684 Completed 01/08/2017 Crystal mcintyre [facility] 7 16:01:24 Fatigue 09838517 Completed 01/08/2017 Crystal dennisivanna mcintyre [facility] 7 16:01:32 Hyperlip idemia 95431798 Active 2011 Not Available [facility] 2 00:52:31 Depressi ve disorder 90457523 Completed 201502/19/2019 Crystal Wilfred dennisivanna mcintyre [facility] 9 15:36:59 Mammogra [facility] breast density 902233131 Active 2017 Not Available [facility] 2 00:52:31 Herpes simplex 65431108 Active 2011 Not Available [facility] 2 00:52:31 Dyspnea on exertion 23173471 Active 2020 Not Available [facility] 2 00:52:31 Gastroes ophageal reflux disease 186907275 Active 2021 Not Available [facility] 2 00:52:31 Problem Notes None recorded. Procedures Surgical History Date Name Laterality Status Provider Name and Address Organization Details Recorded Time 4 Most Recent Mammogram completed Franchesca Man MA [facility] 04/08/2024 14:21:46 4 Date of Last Pap Smear completed Franchesca Man MA [facility] 04/08/2024 14:22:24 9 Mammogram both breasts completed Yuliya Zacarias [facility] 10/28/2019 09:34:13 5 Tubal Ligation completed Franchesca Man MA [facility] 08/05/2021 15:45:22 Tubal Ligation completed Franchesca cha MA [facility] 08/05/2021 15:45:22 Imaging Results Imaging Date Name Status [facility]Modified by [facility] Details LastModified Time 03/08/2023 MAMMO, screening, bilateral completed [facility] [employer] [address] [place], [address], 04/03/2023 10:02:14 07/25/2023 XR, chest, 2 view completed [email or web address] [facility] ([facility]) [address] [place], [address], 07/25/2023 15:36:23 07/25/2023 XR, chest, 2 view completed [email or web address] [facility] [address] [place], [address], 07/27/2023 09:30:42 Procedure Notes None recorded. Medical Equipment None Reported. Allergies No known drug allergies Medications Name Sig Start Date Stop Date Status Note LastModified by Organization Details LastModified Time cyclobenz aprine 10 mg tablet TAKE 1 TABLET BY MOUTH THREE TIMES A DAY FOR 5 DAYS 12/18 completed Not Available Not Available Not Available doxycycli ne hyclate 100 mg capsule 12/30 completed Not Available Not Available Not Available azithromy martha 250 mg tablet TAKE 2 TABLETS BY MOUTH TODAY, THEN TAKE 1 TABLET DAILY FOR 4 DAYS 04/08 completed Not Available Not Available Not Available fluconazo le 150 mg tablet TAKE 1 TABLET TODAY DIRECTED FOR YEAST VAGINITI S, MAY REPEAT AFTER 72 HOURS NEEDED. FOR 1 DAY. 07/25 completed Not Available Not Available Not Available valacyclo vir 1 gram tablet 02/19 completed Not Available Not Available Not Available cephalexi n 250 mg capsule Take by oral route for 10 days. 04/26 completed Not Available Not Available Not Available meloxicam 15 mg tablet active Not Available Not Available Not Available metronida zole 0.75 % (37.5 mg/5 gram) vaginal gel Insert 1 applicat orful every 24 hours by vaginal route. 05/30 completed Not Available Not Available Not Available prednison e 20 mg tablet TAKE 3 TABLET DAILY FOR 2 DAYS THEN 2 TABS DAILY FOR 2 DAYS THEN 1 TAB DAILY FOR 2 DAYS 12/18 completed Not Available Not Available Not Available topiramat e 25 mg tablet BID 04/15 completed RECORDED 04/15/20 12 1:26PM BY FRANCHESCA MAN, OFFICE VISIT; Not Available Not Available Not Available metronida zole 500 mg tablet 10/23 completed Not Available Not Available Not Available valacyclo vir 500 mg tablet Take 1 tablet every day by oral route as directed for 90 days. active Not Available Not Available No t Available sulfameth oxazole 800 mg-trimet hoprim 160 mg tablet Take 1 tablet every day by oral route as needed for 30 days. 08/05 completed Not Available Not Available Not Available Macrobid 100 mg capsule Take 1 capsule twice a day by oral route for 7 days. 02/11 completed Not Available Not Available Not Available famotidin e 20 mg tablet TAKE 1 TABLET 2 TIMES DAILY NEEDED active Not Available Not Available No t Available aspirin 325 mg tablet,de layed release TAKE 1 TABLET BY MOUTH EVERY DAY STARTING DAY AFTER SURGERY 04/08 completed Not Available Not Available Not Available clotrimaz ole-betam ethasone 1 %-0.05 % topical cream 08/30 completed Not Available Not Available Not Available sertralin e 25 mg tablet 1 tab QD 04/25 completed Not Available Not Available Not Available omeprazol e 20 mg capsule,d elayed release 1 po bid 07/25 completed PRN Not Available Not Available Not Available lorazepam 1 mg tablet TAKE 1 TABLET BY MOUTH EVERY DAY NEEDED active Not Available Not Available No t Available ibuprofen 600 mg tablet TAKE 1 TABLET (ORAL) 4 TIMES PER DAY FOR 14 DAYS 12/18 completed Not Available Not Available Not Available scopolami ne 1 mg over 3 days transderm al patch APPLY 4 HOURS BEFORE TRIP 02/19 completed RECORDED 05/28/20 13 10:20AM BY CRYSTAL Sher MD, MEDICATI ON AUTO-TE CTIVATIO N; Not Available Not Available Not Available sertralin e 50 mg tablet Take 1 tablet every day by oral route as directed for 90 days. 02/19 completed Not Available Not Available Not Available diazepam 5 mg tablet Take by oral route for 3 days. 04/26 completed Not Available Not Available Not Available amoxicill in 875 mg-potass ium clavulana te 125 mg tablet Take 1 tablet every 12 hours by oral route for 10 days. 12/18 completed Not Available Not Available Not Available oxycodone 5 mg tablet TAKE 1 TABLET BY MOUTH EVERY 4 TO 6 HOURS NEEDED FOR PAIN TO BEGIN AFTER SURGERY. DO NOT DRIVE 04/08 completed Not Available Not Available Not Available cyclobenz aprine 5 mg tablet Take 1 tablet 3 times a day by oral route as needed for 7 days. 08/04 completed Not Available Not Available Not Available metoprolo l tartrate 25 mg tablet TAKE 0.5 TABLETS TWICE A DAY BY ORAL ROUTE NEEDED FOR 30 DAYS. active Not Available Not Available No t Available Valtrex 1 TAB (S), 500MG, ONCE A DAY, 90 DAY(S) 02/19 completed Not Available Not Available Not Available fluticaso ne propionat e 115 mcg-salme terol 21 mcg/actua tion HFA inhaler INHALE 2 PUFFS INTO THE LUNGS EVERY 12 HOURS 07/25 completed Not Available Not Available Not Available diclofena c 1 % topical gel APPLY 2 GRAMS TO THE AFFECTED AREA(S) BY TOPICAL ROUTE 4 TIMES PER DAY active Not Available Not Available No t Available Flowflex COVID-19 Antigen Home Test kit FOLLOW INSTRUCT IONS INCLUDED WITH THE PACKAGE. 04/03 completed Not Available Not Available Not Available Paxlovid 300 mg (150 mg x 2)-100 mg tablets in a dose pack Take 3 tablets twice a day by oral route as directed for 5 days. 09/22 completed Not Available Not Available Not Available Vitals Date Recorded Body height Provider Name an d Address Organization Details Last Updated DateTime 09/26/2022 157.48 cm [place] Marti [facility] 09/26/2022 15:33:21 Date Recorded Heart rate Oxygen saturation Oxygen saturation in Arterial blood by Pulse oximetry Provider Name and Address Organization Details Last Updated DateTime 09/26/2022 82 /min 97 % 97 % Chance Monreal PA-C [address] [address], [place], [address], [place] [facility] 09/26/2022 16:07:36 Date Recorded Body height Body mass index (BMI) Body weight Oxygen saturation Oxygen saturation in Arterial blood by Pulse oximetry Heart rate Body temperature Systolic blood pressure Diastolic blood pressure Provider Name and Address Organization Details Last Updated DateTime 02/06/202 3 157.48 cm 26.6 kg/m2 08685.2 9 g 99 % 99 % 100 /min 98.5 [degF] 128 mm[Hg] 80 mm[Hg] Franchesca Mna MA [facility] 3 13:10:39 Date Recorded Heart rate Provider Name an d Address Organization Details Last Updated DateTime 12/18/2022 88 /min Chance Bradley-Tatyana [address], [address], [facility] 12/18/2022 13:42:11 Date Recorded Body height Body mass index (BMI) Body weight Heart rate Oxygen saturation Oxygen saturation in Arterial blood by Pulse oximetry Body temperature Systolic blood pressure Diastolic blood pressure Provider Name and Address Organization Details Last Updated DateTime 3 157.48 cm 27.3 kg/m2 83442.9 6 g 92 /min 99 % 99 % 98.4 [degF] 120 mm[Hg] 76 mm[Hg] Alexander Ortiz MA [facility] 3 08:47:56 Date Recorded Body height Body mass index (BMI) Body weight Heart rate Oxygen saturation Oxygen saturation in Arterial blood by Pulse oximetry Body temperature Systolic blood pressure Diastolic blood pressure Provider Name and Address Organization Details Last Updated DateTime 3 157.48 cm 27.6 kg/m2 77846.4 5 g 94 /min 98 % 98 % 98.7 [degF] 142 mm[Hg] 89 mm[Hg] Olivia Huddleston MA [facility] 3 13:03:26 Date Recorded Body height Body mass index (BMI) Body weight Oxygen saturation Oxygen saturation in Arterial blood by Pulse oximetry Heart rate Body temperature Systolic blood pressure Diastolic blood pressure Provider Name and Address Organization Details Last Updated DateTime 4 157.48 cm 27.8 kg/m2 02888.4 4 g 98 % 98 % 83 /min 98.3 [degF] 118 mm[Hg] 74 mm[Hg] Franchesca Man MA [facility] 4 14:17:19 Social History Question Answer Notes LastModified by Organizat ion Details LastModified Time Tobacco Smoking Status [facility]2014 15:40:16 What Is Your Level Of Alcohol Consumption? Occasional [email or web address] Information not available 12/09/2014 Is Blood Transfusion Acceptable In An Emergency? Yes [email or web address] Information not available 12/10/2015 What Is Your Level Of Caffeine Consumption? Moderate [email or web address] Information not available 08/04/2020 How Much Tobacco Do You Chew? None [email or web address] Information not available 08/04/2020 Are You Currently Employed? Yes [email or web address] Information not available 12/09/2014 What Type Of Diet Are You Following? REGULAR [email or web address] Information not available 12/09/2014 Do You Or Have You Ever Used E-cigarettes Or Vape? 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 Yes Student Affairs Vice President [email or web address] Information not available 04/26/2022 Live Alone Or With Others? With Others [email or web address] Information not available 04/26/2022 Do You Take Precautions To Prevent Distracted Driving? Yes [email or web address] Information not available 12/10/2015 How Often Do You Need To Have Someone Help You When You Read Instructions, Pamphlets, Or Other Written Material From Your Doctor Or Pharmacy? Never [email or web address] Information not available 08/04/2020 Have You Served In The ? No [email or web address] Information not available 01/08/2017 Have You Or Anyone In Your Household Had Any Of The Following Symptoms In The Last 14 Days: Sore Throat, Cough, Chills, Body Aches For Unknown Reasons, Shortness Of Breath For Unknown Reasons, Loss Of Smell, Loss Of Taste, Fever At Or Greater Than 100 Degrees Fahrenheit? No [email or web address] Information not available 08/04/2020 Are You Or Anyone In Your Household A Health Care Provider Or Emergency Responder? No [email or web address] Information not available 08/04/2020 To The Best Of Your Knowledge Have You Been In Close Proximity To Any Individual Who Tested Positive For COVID-19? No Information not available 08/04/2020 Have You Recently Traveled To A COVID-19 High Risk Area Or Gathering In The Last 10 Days? No [email or web address] Information not available 08/05/2021 What Was The Date Of Your Most Recent Tobacco Screening? 04/08/2024 [email or web address] Information not available 04/08/2024 How Many Children Do You Have? 3 [email or web address] Information not available 12/09/2014 Do You Use Protection During Sex? No [email or web address] Information not available 08/04/2020 What Is Your Relationship Status? [email or web address] Information not available 04/26/2022 Do You Use Your Seat Belt Or Car Seat Routinely? Yes [email or web address] Information not available 08/05/2021 Seat Belts Used Routinely Yes Information not available 04/26/2022 Are You Sexually Active? Yes [email or web address] Information not available 08/04/2020 Smoke Alarm In Home No Information not available 04/26/2022 Do You Have Smoke And Carbon Monoxide Detectors In Your Home? Yes [email or web address] Information not available 08/05/2021 Are You Passively Exposed To Smoke? Yes [email or web address] Information not available 08/04/2020 Do You Or Have You Ever Used Smokeless Tobacco? Never Used Smokeless Tobacco [email or web address] Information not available 08/04/2020 General Stress Level Medium Information not available 04/26/2022 Do You Use Any Illicit Or Recreational Drugs? No Information not available 04/03/2023 Do You Use Sunscreen Routinely? Yes [email or web address] Information not available 12/09/2014 Sex: Unknown Functional Status Question Answer Note LastModified by Organizat ion Details LastModified Time Are you able to walk? YESWOREST [email or web address] Information not available 04/26/2022 Are you able to care for yourself? Yes [email or web address] Information not available 12/09/2014 What is your exercise level? Occasional Information not available 04/03/2023 Mental Status None recorded. Family History Relationship Description Onset Age of this Age Resolved Age Notes LastModified by Organization Details LastModified Time Mother Hypertensive disorder [email or web address] Not available 12/10 15:46:40 Mother Hypercholest erolemia [email or web address] Not available 12/10 15:46:40 Mother Carcinoma in situ of esophagus [email or web address] Not available 04/26 10:37:29 Mother Allergy [email or web address] Not availabl e 08/05/2021 15:45:10 Mother Arthritis [email or web address] Not availa ble 08/05/2021 15:45:10 Father Malignant tumor of pharynx [email or web address] Not available 04/26 10:37:29 Father Asthma [email or web address] Not available 08/05/2021 15:45:10 Maternal Grandmother Rheumatoid arthritis [email or web address] Not available 04/26 10:37:29 Paternal Grandmother Carcinoma of stomach [email or web address] Not available 04/26 10:37:30 Notes:No FH of colon or hussain st cancer Medical History Condition Response Other N Gout N Kidney Stones N Blood Diseases N Hyperthyroidism N Breast Cancer N Depression N COPD N Lung Disease N Hypothyroidism N Defects or Inherited Disease N Anesthesia Complications N Headaches/Migraines N Varicose Veins N Anxiety Disorder Y Obesity N Vision or Eye Problems N Arthritis N Head Injury/Concussion N Polyps N Infertility N Congenital Anomalies N Acid Reflux (GERD) Y Cancer N Stroke N ADHD N Endometriosis N High Cholesterol N Liver Disease N Fibromyalgia N Kidney Disease N Heart Problems N Ear or Hearing Problems N Hospitalizations N Thyroid Problems N GI Problems N Acne N Eating Disorder N Skin Problems N Anemia N Constipation N Bladder Problems Y Mental Illness N Ovarian Cancer N Diabetes N Blood Transfusions N Seizures/Epilepsy N Tuberculosis N AIDS/HIV N Congestive Heart Failure (CHF) N Eczema N Diverticulitis N Abuse/Domestic Violence N Asthma N Allergies N Reflux/GERD Y Hepatitis N Pulmonary Embolism N Hypertension N Chicken Pox N Autism Spectrum Disorder (ASD) N Osteoporosis N Gynecological History Statement/Question Response Date of Last Pap Smear 03/12/2024 Date of Last Colonoscopy Most Recent Mammogram 03/12/2024 Obstetrics History GPAL:G 0 P 0 0 0 0 Immunizations Vaccine Type Date Status Note Provider Name and Address Organization Details Recorded Time Influenza, split virus, quadrivalent, preservative 08/12/20 17 completed Not Available [facility] 12/10/2021 00:52:31 Influenza, split virus, quadrivalent, preservative 08/26/20 18 completed Not Available [facility] 12/10/2021 00:52:32 COVID-19, mRNA, LNP-S, PF, 30 mcg/0.3 mL dose, zuly-sucrose 03/03/20 22 completed CHIQUITA Mcnair, [facility] 09/16/2022 10:44:21 COVID-19, mRNA, LNP-S, PF, 30 mcg/0.3 mL dose 02/08/20 21 completed CHIQUITA Mcnair [facility] 09/16/2022 10:44:21 COVID-19, mRNA, LNP-S, PF, 30 mcg/0.3 mL dose 01/16/20 21 completed CHIQUITA Mcnair [facility] 09/16/2022 10:44:21 influenza, seasonal, intradermal, preservative free 08/12/20 14 completed CHIQUITA Mcnair [facility] 09/16/2022 10:44:21 Influenza, split virus, quadrivalent, PF 08/04/20 20 completed CHIQUITA Bradley [facility] 09/22/2022 10:51:40 Td (adult), 2 Lf tetanus toxoid, preservative free, adsorbed 05/30/20 19 completed CHIQUITA Bradley [facility] 09/22/2022 10:51:40 Influenza, split virus, quadrivalent, PF 12/10/19 16 completed Not Available [facility] 11/29/2019 02:22:02 Influenza, recombinant, quadrivalent, PF 10/11/20 22 completed CHIQUITA Bradley [facility] 07/25/2023 13:06:43 Influenza, split virus, quadrivalent, PF 09/20/20 16 completed Not Available [facility] 11/29/2019 02:22:07 Influenza, split virus, quadrivalent, PF 11/09/20 21 cancelled patient objection Crystal [email or web address] [facility] 11/13/2021 22:40:00 Tdap 01/17/20 08 completed Not Available [facility] 12/10/2021 00:52:32 Past Encounters Encounter ID Performer Location Encounter Start Date Encounter Closed Date Diagnosis/Indication Diagnosis SNOMED-CT Code Diagnosis ICD10 Code Diagnosis Note [id number] auto[employer] erce [address] [facility],[address] [place] [address] 01/17/2008 00:00:00 [id number] autoEComm caylae [address] [facility] [place] [address] 04/22/2009 00:00:00 [id number] autoEComm caylae [address] [facility] [place] [address] 04/30/2009 00:00:00 [id number] [employer] [address]ae [address] [place] [address],[address] [place] [address] 04/15/2012 00:00:00 [id number] auto[employer] caylae [address] [place] [address],[address] [place] [address] 05/27/2012 00:00:00 [id number] [employer] [place] [address] [place] [address],[address] [place] [address] 06/12/2012 00:00:00 [id number] Franchesca Man MA Main Office [address] [address] [place] [address] 12/09/2014 15:18:07 12/09/2014 16:18:41 Adult health examination [id number] pt will get pa p and mammo is utd, is exercising , will add weight training. Hypercholesterolemia 19423033 check fasting [id number] Aravind Granger MD Main Office [address] [address] [place] [address] 05/11/2015 08:40:57 05/11/2015 09:48:34 Lymphadenopathy 11661813 Reassuranc e regarding apparent reactive adenopathy . [id number] Crystal frazier Main Office [address] [address] [place] [address] 12/10/2015 15:17:12 12/10/2015 16:13:20 Adult health examination 009098885 Z00.00 pap and mammo utd, is active, stress with terminally ill mom Needs infl uenza immunization 214660861 Z23 Hypercholesterolemia 136 03103 E78.2 check random Fatigue 66616481 R53.83 see hx, very unlikely but pt is concerned about contractin g HIV from sharing drink with separate star with coworker who had and cleared Hepatitis C with treatment. Will test pt, no other risk factors. [id number] Isabel Salas Main Office [address] [facility] [address] [place] [address] 09/20/2016 15:52:32 09/20/2016 16:40:49 Influenza vaccine needed 9596537056 106 Z23 Anxiety 02265218 F41.9 counseling ot be arranged Insomnia 436863456 G47.0 0 very poor sleep despite spending many hours in bed, treat for sleep Major depr essive disorder 207960464 F32.9 start sertraline , will see pt back next week to check is sleeping better, on sertraline and getting counseling set up, will talkt o Leila here to see if can work her in [id number] Crystal Wilfred frazier Main Office [address] [facility] [address] [place] [address] 09/27/2016 16:20:07 09/28/2016 11:50:30 Anxiety 78773735 F41.9 is in counseling , is taking sertraline 25mg and lorazepam for sleep, had 2 panic attacks, still not functionin g well at home continue counseling increase sertraline to 50mg and return in a month Panic attack 704858337 F 41.0 2 since last visit, uses lorazepam which helps [id number] Crystal Wilfred frazier Main Office [address] [facility] [address] [place] [address] 11/01/2016 14:54:41 11/01/2016 15:36:23 Malaise and fatigue 711996881 R53.83 still not functionin g at baseline, missed soem work, low mood Anxiety 96322850 F41.9 is feeling a bit artificial plastic eye maker, she will increase sertraline to 75mg a day, not in counseling but I strongly encouraged her to, she will think about it, hopefully higher dose can help with motivation [id number] Crystal Wilfred frazier Main Office [address] [facility] [address] [place] [address] 01/08/2017 15:19:46 01/08/2017 16:09:45 Adult health examination 753217803 Z00.00 pap and mammo utd, is active, Insomnia 852657254 G47.0 0 sleeping better, uses lorazepam for sleep, pt is aware and understand s to not use lorazepam in the daytime 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 off meds, pt to watch for any signs of recurrence and restart zoloft if needed and she will let me know if she restarts med [id number] [facility] [address] [address] [place] [address] 10/18/2017 13:57:34 10/18/2017 15:02:47 Acute pharyngitis 444138890 J02.9 neg quick strep, seems viral, rest motrin and fluids [id number] [facility] Main Office [address] [place] [address] [place] [address] 02/19/2019 15:11:50 02/19/2019 16:10:15 Adult health examination 618145357 Z00.00 pap and mammo utd, is active, , exhusband transition ed to female, has teenagers at home, they are doing well Screening for malignant neoplasm of breast 970349428 Z12.39 pt to arrange Urgent mima virgen to urinate 16185425 R39.15 is on abx, feeling better [id number] [facility] Main Office [address] [address] [place] [address] 05/30/2019 09:07:44 05/30/2019 09:59:18 Recurrent urinary tract infection 196927700 N39.0 treated by director of managed care or here, at least 3 this year, pt is also bothered with gardnerell a, abn pap, will drink more fluids and see urology, may need urodynamic s to make sure she is completely emptying and maybe post coital prophylaxi s Requires a tetanus booster 791605388 Z23 Increased frequency of urination 971952353 R35.0 see above Abnormal c ervical Papanicolaou smear 687027626 R87.619 getting a LEEP in 07/31 Gardnerella vaginitis 41 5448172 N76.0 recurrent, is on metrogel 2 times a week by Dr Carrillo due to needing a LEEP [id number] Sharon morrison Main Office [address] [facility] [address] [place] [address] 02/12/2020 10:55:46 02/17/2020 13:50:54 Acute vaginitis 91917798 N76.0 SYMPTOMS: vaginal itching? {{yes* no} } discharge? {{yes* no} } recent antibiotic exposure? {{yes* no} } feels like previous yeast infection? {{yes* no} } POSSIBLE CONTRAINDI CATIONS TO TELEPHONE TREATMENT: pelvic pain? {{yes no*} } fever? {{yes no*} } ? {{yes no*} } pain with intercours e? {{yes no}} PROVIDER ACTION: Reviewed nursing notes? {{yes no}} Recommende d action {{appropri ate for telephone treatment* needs appointmen t}} Treatment {{fluconaz ole x 2 doses, call if not improving. Can supplement with otc cream if needed. Call if not better in a few days. # fluconaz ole terazo l may use over the counter medication s another medication (provider will prescribe) NA}} [id number] Sharon Sepulvedaanais Main Office [address] [address] [place] [address] 06/10/2020 08:48:32 06/10/2020 09:44:51 Low back pain 754148896 M54.5 Rest, stretching at home, start PT program twice a week. Can use mobic in the am and flexeril at night, sleep with pillow under knees or between knees. Likely muscular, call if not better with PT and medication s. If she has continued pain in right leg needs to see for that. I am treating pre existing back pain. If lumps remain tender would send for further evaluation . Time spent > 25 min with > 50% counseling and coordinati on. [id number] Crystal frazier Main Office [address] [facility] [address] [place] [address] 08/04/2020 14:16:01 08/04/2020 15:02:48 Adult health examination 089988263 Z00.00 pap and mammogram are utd, Hyperlipidemia 40727768 E78.5 Needs infl uenza immunization 816413024 Z23 Recurrent urinary tract infection 062793229 N39.0 uses bactrim for prophylaxi s Gastroesop hageal reflux disease 817624485 K21.9 check labs, on meds, [id number] Crystal frazier [facility] [address] [facility] [address] [place] [address] 09/13/2020 13:26:14 09/14/2020 11:07:31 Gastroesophageal reflux disease 067839479 K21.9 neg labs, med has resolved symptoms, keep on for 6 weeks, then stop, if needs to use prn will do that [id number] Crystal frazier Main Office [address] [address] [place] [address] 08/05/2021 15:23:03 08/05/2021 16:17:23 Adult health examination 273142689 Z00.00 pap and mammogram are utd, severe fatigue see below, under stress, Fatigue 51544187 R53.83 see HPI. at end of visit we talked about depression , will get labs, f/u in 11/01. consider tx for depression if no other cause comes clear Dyspnea on exertion 6084 5006 R06.09 rule out anemia, very deconditio mat. start an exercise walking program. [id number] Jovan Valentino MD Main Office [address] [address] [place] [address] 08/30/2021 10:49:35 08/30/2021 11:44:44 Costal chondritis 12504670 M94.0 Neck pain 29712383 M54.2 Appears to be muscular. Possibly related to sleeping position or strain. Treat with exercises, NSAIDs and muscle relaxant. She will call next week if not improving and we will do a referral at that time. [id number] Crystal frazier Main Office [address] [facility] [address] [place] [address] 11/09/2021 15:53:55 11/09/2021 16:18:23 Needs influenza immunization 204666630 Z23 declined Dyspnea on exertion 6084 5006 R06.09 LAbs done 08/02 ruled out anemia and hypothyroi d, , very deconditio mat. start an exercise walking program. will evaluate with CXR and pulmonary referral ? adult onset asthma Gastroesop hageal reflux disease 924685729 K21.9 continue meds [id number] Sharon Abdi Main Office [address] [facility] [address] [place] [address] 04/26/2022 10:37:12 04/26/2022 11:19:05 Pain in toe 004453410 M79.674 check xray to rule out fracture or arthritis. Does not appear inflammato ry, would have her see podiatry for this. Consider labs if xray negative. Not consistent with gout at this time.. Call if worsening [id number] Adan Hill MD Main Office [address] [address] [place] [address] 09/16/2022 08:37:05 09/16/2022 12:02:39 COVID-19 485699399 U07.1 Based on duration of symptoms and comorbidit ies pt is a candidate for antiviral therapy. Common/ser ious potential side effects discussed. Advised to call if noted. Current isolation guidelines based on immunizati on status discussed as well as isolation if rebound infection occurs. Medication s reviewed and dosing adjusted as indicated with Paxlovid. Sore throat 892017699 J0 2.9 Salt water gargling and nasal saline advised. [id number] Adan Hill MD [facility] [address] [address] [place] [address] 09/22/2022 10:16:33 09/22/2022 12:28:33 Acute sinusitis 61882367 J01.90 With second sickening/ onset new sinus symptoms following COVID there is reasonable concern for a secondary bacterial process. Will cover with augmentin. May need imaging and course of steroid if not slowly improving. Advised of common/ser ious potential medication side effects and to call with any problems. [id number] Chance Monreal PA-C [facility] [address] [address] [place] [address] 09/26/2022 13:24:28 10/12/2022 09:06:30 History of SARS-CoV-2 2815164219 41580163 Z86.16 rx'd c paxlovid x 3 days back on 11.5 Acute sinusitis 07237211 J01.90 sinuses feeling better - cont abx as dir, recommend probiotics while on abx see above - will add pred pulse to help c inflammati on of lungs/sinu ses p covid Dyspnea 700967435 R06.00 eric for past year - fol by pulm - reviewed 08.28.22 pulm note - has never rec'd prn alb/unlike ly asthma - has pending stress echo on 10.04, and f/u c pulm on 10.09 however, pt states her eric seems to be getting even worse p covid - even has sob c prolonged talking this past week - see below, will add pred pulse further rev chart - had nl cbc, probnp, bmp back in 3. f/u c me in ~ 3 wks - consider card eval if still no working dx to explain her sxs *will fwd copy of this note to pulm* Palpitations 98326437 R0 0.2 klarissa c exertion - apparently had nl ekg - recheck labs, klarissa check magnesium [id number] Chance STEWARTC Main Office [address] [facility] [address] [place] [address] 12/18/2022 12:50:32 12/18/2022 14:11:14 Palpitations 36988870 R00.2 klarissa c exertion - apparently had nl ekg - recheck labs, klarissa check magnesium 2.23 - trial c otc magnesium qd-qod - watch for possible SE of diarrhea Magnesium calms the electrical system and helps slow the heart rate. So while it may not treat the atrial fibrillati on, there is a correlatio n between magnesium and maintenanc e of a normal heart rhythm. Magnesium may have a positive effect on blood pressure, type 2 diabetes, and heart disease. Magnesium sulfate is a bronchodil ator. It relaxes the bronchial muscles and expands the airways, allowing more air to flow in and out of the lungs. This can relieve symptoms of asthma, such as shortness of breath. Doctors mainly use magnesium sulfate to treat people who are having severe asthma flare-ups. if no benefit c trial of magnesium above, then give trial of metoprolol 12.5mg qd prn (ac walking/ex ercising, etc) *will fwd copy of this note to pulm & card* Dyspnea on exertion 6084 5006 R06.09 eric for past year - fol by pulm - reviewed 08.28.22 pulm note - has never rec'd prn alb/unlike ly asthma - has pending stress echo on 10.04, and f/u c pulm on 10.09 however, pt states her eirc seems to be getting even worse p covid - even has sob c prolonged talking this past week - see below, will add pred pulse further rev chart - had nl cbc, probnp, bmp back in . f/u c me in ~ 3 wks - consider card eval if still no working dx to explain her sxs 01.04 - pending see card, repeat chest ct & f/u c pulm in 03.04 --- see below about tmt trials [id number] JOSEPHINE PÉREZ MD Main Office [address] [place] [address] 04/03/2023 08:31:12 04/03/2023 09:11:47 Adult health examination 093251924 Z00.00 Health Maintenanc e FemaleA) Patient was counseled on healthy diet, exercise and nutrition due to BMI of 27.3 (4lbs increase in one year) B) ScreeningL ast Mammogram: start at age 50 stop at 74Date: 1Re sult: MARY-1Ne xt: had one recently, will try to get the results Last Pap smear: start at age 21 to age 65Date: Results : ???Next: will need to get results, performed in 2021 Last Colonoscop y: start at age 45-75Date: Result: Next: next year Last DEXA scan:Date: due at 65Result: ??? C) Vaccines:I nfluenza: not this yearTdAP: 05/30/2019 Zoster: due at 16TLA62: due at 07EVQQ07: due at 00WMP15:PC V15:COVID: 01/15/2021 , 02/07/2021 , 03/03/2022 D) Routine blood work ordered in ) Updated patient's history RTC in one year for annual exam or sooner if any acute complaints Gastroesop hageal reflux disease 446611317 K21.9 The following lifestyle changes are recommende d and counseled :-Losing weight: Losing weight helps people who are overweight to reduce acid reflux.-Ra ising the head of your bed six to eight inches-Luis iding foods that trigger symptoms ? Avoid excessive caffeine, chocolate, alcohol, peppermint , and fatty foods.-on omeprazole 20mg QD as needed however will try switching to famotidine 20mg as needed Dyspnea on exertion 6084 5006 R06.09 - with associated tachycardi a- c/w advair- has been following with pulm: last seen on 03/06/23> CT chest showed pulmonary nodules> recommende d pulm rehab> PFTs normal, 6 min walk test normal> also wanted CPET testing> RTC in 6 months- has been following with cardio: last seen on 02/21/23> stopped the metoprolol > EKG normal, ECHO normal> stress test incomplete : was only able to sustain for 6 mins and echo portion was inconclusi ve> advised trial of CPAP> if CPAP does not work to consider CPET testing- RTC in 6 months Anxiety 57048846 F41.9 - currently on lorazepam as needed for insomnia and anxiety Candidiasis of vagina 72 [id number] B37.31 - currently having a yeast infection, diagnosed based on clinical symptoms [id number] Jovan Valentino MD Main Office [address] [address] 07/25/2023 12:46:12 07/25/2023 14:21:47 Cough [id number] R05.9 Pneumonia [id number] J18. 9 [id number] JOSEPHINE PÉREZ MD Main Office [address] [address] 04/08/2024 14:06:02 04/08/2024 14:45:59 Adult health examination [id number] Z00.00 Health Maintenanc e FemaleA) Patient was counseled on healthy diet, exercise and nutrition due to BMI of 27.8 B) ScreeningL ast Mammogram: start at age 50 stop at 74Date: 03/11/2024 Result: BIRADS-1Ne xt: 02/2025 Last Pap smear: start at age 21 to age 65Date: 03/06/2022 esults: HPV negative, no atypical cellsNext: 3 years Last Colonoscop y: start at age 45-75Date: Result: Next: ordered Last DEXA scan:Date: due at 65Result: ??? C) Vaccines:I nfluenza: not this yearTdAP: 05/30/2019 Zoster: orderedPCV 13: due at 82APQX51: due at 17PAD88:PC V15:COVID: 01/15/2021 , 02/07/2021 , 03/03/2022 D) Routine blood work orderedE) Updated patient's history RTC in one year for annual exam or sooner if any acute complaints Gastroesop hageal reflux disease [id number] K21.9 The following lifestyle changes are recommende d and counseled :-Losing weight: Losing weight helps people who are overweight to reduce acid reflux.-Ra ising the head of your bed six to eight inches-Luis iding foods that trigger symptoms ? Avoid excessive caffeine, chocolate, alcohol, peppermint , and fatty foods.- c/w famotidine 20mg as needed Dyspnea on exertion 6084 5006 R06.09 - improved- with associated tachycardi a- c/w advair- has been following with pulm: last seen on 03/06/23> CT chest showed pulmonary nodules> recommende d pulm rehab> PFTs normal, 6 min walk test normal> also wanted CPET testing- has been following with cardio: last seen on 02/21/23> stopped the metoprolol > EKG normal, ECHO normal> stress test incomplete : was only able to sustain for 6 mins and echo portion was inconclusi ve> advised trial of CPAP- pt did not complete work-up as she is feeling better Anxiety [id number] F41.9 - currently on lorazepam as needed for insomnia and anxiety Screening for malignant neoplasm of colon [id number] Z12.11 Fatigue 77278046 R53.83 Z00.00 Hyperlipidemia 49643639 E78.5 Z00.00 FASTING Chest wall pain [id number] 6 R07.89 - located at the left breast at 10 o'clock- director of managed care does not believe etiology is coming from the breast- pt did have stress test in 2022 was negative- will check chest x-ray- pt advised to try a course of anti-infla mmatories HIV screen ing declined [id number] 97118 Z53.20 Varicella vaccination 68 966857 Z23 Health Concerns Section Related Observation LastModified by Organization Detai ls LastModified Time None Recorded Concern Status LastModified by Organization Details LastModified Time None Recorded Advance Directives Directive None Recorded Payers Encounter Date Sequence Insurance Name Policy Number Policy Dunn Covered Member ID Dunn Member ID Guarantor Name 09/26/2022 1 [facility] [email or web address] [facility] ([facility]) [id number] Katty Rettura [id number] Katty Rettura 12/18/2022 1 [facility] (POS) [id number] Katty Rettura [id number] Katty Rettura 04/03/2023 1 [facility] (POS) [id number] Katty Rettura [id number] 2 Katty Rettura 07/25/2023 1 [facility] (POS) Katty Rettura [id number] Katty Rettura 04/08/2024 1 [facility] (POS) Katty Rettura [id number] 2 Katty Rettura Notes Date Note Type Note Provider Name and Address Organization Details Recorded Time 09/26/20 22 text/ht ml Patient was initially diagnosed with covid she had 3 days of Paxlovid and antibiotics was given on Sunday. Patient is still experiencing fatigued, SOB. Patient is unable to complete a full days of work due to symptoms. reviewed prior ov notes - recently given augmentin for sinusitis on 09.22.22 klarissa c/o sob & wheezing seen by pulm recently - reviewed note - apparently had nl ekg, pfts, ct chest (x small pulm nodules) no sig cough Chance Monreal PA-C [address] [address], [place], [address], [facility] 09/26/2022 16:38:11 12/18/19 23 text/ht ml here for f/u visit - last seen as TH 09.26.22, reviewed note & labs - then seen by pulm 10.09 - reviewed note c pt pending see card 4.23 - Dr. Eganpending recheck chest ct 4.next f/u c Dr. Chan late 4. tried advair - no sig help pt c/o both sob and palp -- not at rest but with exertion ---- does walk 2-3 miles/day fine without problem - but cannot miner pick the pace to doug after her dog or go up stairs quickly reviewed older labs - no anemia Chance Monreal PA-C [address] [facility] [address], [place], [address], [facility] 12/18/2022 21:38:01 04/03/20 23 text/ht ml Katty Gleason is a 47 year old F who presented to the clinic for her annual exam. Pt denies any emergency room visits or hospitalizations in the last year. Complaints: pt mentions has been undergoing testing for dyspnea. Has been present for several years, work-up started this year. Pt was seen by cardio and pulm. No clear etiology. Currently all testing negative. 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 Is not using ASA.OTC/Herbal supplements use: magnesium Gynecologic HistoryPatient's last menstrual period was in imenopausalMenstrual cycle lasts 5-7 days, without spotting/clothsMenstrual cycle: irregularSexually active: yesContraception: none+ abnormal paps, needed a biospySTD: HPV, HSVDenies cysts, fibroids Obstetric HistoryGravida: 3Para: 3AB: 0Livin vaginalComplications: none Drug use: neverEtoh use: on the weekends, when out at dinnertobacco use: younger stopped at 21spf/derm: uses Dental: every 6 monthsEye: once a yearDiet: regularActivity: walk (exertion is a problem) JOSEPHINE PÉREZ MD [address] [facility] [address], [place], [address], [facility] 04/03/2023 09:54:10 07/25/20 23 text/ht ml CoughReported bypatient.Quality:wet mucus cough Duration:constant Modifying Factors:OTC medication Associated Symptoms:no fever; no chills; no chest pain; no heartburn; no nausea; no vomiting; no edema; no agitation;wheezing; palpitations Katty presents with shortness of breath, cough, and congestion that started Monday 07/23. Was seen 12/2022 for SOB on exertion, follows with pulmonology and has no asthma or pulm conditions. Also follows cardiology and is cleared on their end. Reports of congestion, SOB upon exertion and when just talking. Also reports of a few episodes of diarrhea- has decrease in appetite and admits to not drinking enough water as she should be. Tenderness to her sinuses and feels like theres mucus in her lungs. Has been taking tylenol and ibuprofen that provided great relief. Denies of fever, chills, n/v, hemoptysis, changes in hearing or vision. No hx of pulm or cardiac conditions. Jovan Valentino MD [address] [address], [place], [address], [facility] 08/02/2023 08:18:19 04/08/20 24 text/ht ml Katty Gleason is a 48 year old F who presented to the clinic for her annual exam. Pt denies any emergency room visits or hospitalizations in the last year. Complaints: Pt has arthritis in her right toe with going to ortho next week. Had bone spur removed. Pt mentions that she has been having trouble hearing. Pt has been having pain in the left side of the chest wall pain for the last year. Pt was seen by director of managed care as the pain located on the breast at 10 o'clock. Cleared from a director of managed care stand-point. 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
== END 2025-01-13 15:11 | disposition home or self-care (01) ==
PROVIDERS: PCP Student in an Organized Health Care Education/Training Program; Visit Provider Hospitalist
DX: R06.09 Other forms of dyspnea (principal); R00.0 Tachycardia, unspecified; R91.1 Solitary pulmonary nodule
CPT/HCPCS: 99214

== ENCOUNTER 2025-01-13 14:14 | Outpatient (REF) | payer OTHER, SELFPAY ==
[2025-01-13 15:53] LABS: MANUAL DIFF FLAG NO
[2025-01-13 17:10] LABS: Basophils Absolute Auto 0.1 X10*3/uL (0.0-0.2); Basophils Percent Auto 0.6 % (0-2); Eosinophils Absolute Auto 0.2 X10*3/uL (0.0-0.4); Eosinophils Percent Auto 2.6 % (0-4); Hematocrit 40.9 % (37.0-47.0); Hemoglobin 13.5 g/dl (12.0-16.0); Imm Gran Abs Auto 0.01 X10*3/uL (0.00-0.03); Imm Gran Pct Auto 0.1 % (0.0-0.4); Lymphocytes Absolute Auto 3.4 X10*3/uL (1.2-4.9); Lymphocytes Percent Auto 38.2 % (20-40); Mean Corpuscular Hemoglobin 25.7 pg (27.0-33.0); Mean Corpuscular Volume 77.9 fL (80.0-98.0); Mean Platelet Volume 11.5 fL (9.4-12.3); Monocytes Absolute Auto 0.6 X10*3/uL (0.1-1.2); Neutrophils Absolute Auto 4.6 x10*3/uL (2.0-8.3); Neutrophils Percent Auto 51.5 % (45-73); Platelet Count 263 X10*3/uL (160-400); Red Blood Count 5.25 X10*6/uL (4.20-5.50); Red Cell Distribution Width 13.1 % (11.0-16.0)
[2025-01-13 17:34] LABS: Anion Gap 13 (12-20); B Type Natriuretic Peptide < 10 pg/mL (<100); Blood Urea Nitrogen 18 mg/dL (9-16); Calcium 9.5 mg/dL (8.4-10.2); Carbon Dioxide 26 mmol/L (22-29); Chloride 104 mmol/L (96-108); Estimated Glomerular Filt Rate > 60; Glucose Random 119 mg/dL (60-115); Sodium 139 mmol/L (135-145)
[2025-01-13 17:35] LABS: D Dimer High Sensitivity < 150 NG/ML
[2025-01-13 17:50] LABS: TSH reflex Free T4 1.47 uIU/mL (0.32-4.0)
[2025-01-13 18:52] LABS: Erythrocyte Sedimentation Rate 7 MM/HR (0-20)
--- OUTSIDE RECORDS SUMMARY | 2025-01-13 19:17 | XMS_ITS | Clinical Summary ---
Author Organization [facility] [address] [facility] Address [address] [place] [address] Phone Care Team Providers Care Metal Moulder'S Assistant Name Role Phone Danyelle Barba MD Primary Care Provider [phone] Social History Tobacco Use Types Packs/Day Years [...] age to complete this topic Care Teams Metal Moulder'S Assistant Relationship Specialty Start Date End Date Danyelle Barba MD [address] [address] PCP - General Internal Medicine 09/05/24
== END 2025-01-13 14:15 | disposition home or self-care (01) ==
LOC: HO.LAB 14:14
PROVIDERS: PCP Student in an Organized Health Care Education/Training Program; Visit Provider Hospitalist
DX: R06.09 Other forms of dyspnea (principal); R00.0 Tachycardia, unspecified; R91.1 Solitary pulmonary nodule
CPT/HCPCS: 36415; 80048; 83880; 84443; 85025; 85379; 85652

== ENCOUNTER 2025-04-27 15:12 | Outpatient (AMB) | payer OTHER, SELFPAY ==
--- NOTE | 2025-04-27 15:23 | MHC.OFFVIS ---
Vital Signs 04/27/25 15:24 Height 5 ft 2 in Weight 151 lb 0.266 oz BMI 27.6 BP 110/72 Blood Pressure Location Lt brachial Position Sitting Pulse 88 Pulse Source Pulse Oximeter Pulse Oximetry (%) 97 Oxygen Delivery Method Room Air Intake Visit Reasons: [facility] Shift Lead Required: No Accompanied by: Self / Same As Patient Allergies No Known Allergies Allergy (Verified 04/27/25 15:27) HPI Comments Details: The patient is a 49 year-old woman presenting with ongoing progressive dyspnea on exertion. Patient states that for the loss several years she has been noticing increasing breathlessness specially when going up a flight of stairs. Although, she has felt her symptoms have gotten worse in the last year. People around her have started commenting that she appears to be short of breath even with minimal activity. She denies ever having a diagnosis of asthma or any other obstructive airway disease. She has never had to use inhalers is never had a cardiac condition that she is aware of. Therefore the patient was referred to Pulmonary for further evaluation. She did have a chest x-ray done at [facility]. We did personally reviewed the x-ray demonstrating no acute disease. The patient denies any exposures of any mold or chemicals or fumes or toxins or farm Exposures. 01/10/2022 the patient is here for a pulmonary follow-up visit. She continues to have the dyspnea on exertion. It is uncomfortable for her. The patient did have pulmonary function studies today which we personally reviewed. Patient overall had relatively normal pulmonary function capacity. although, both her forced vital capacity and the total lung capacity which is slightly low. The patient did have a chest x-ray that I personally reviewed without any significant disease. At this point the patient is concerned that she continues to be symptomatic. We did do blood work including a D-dimer that was negative. The patient was noted have slight decrease in oxygen supplementation when ambulating. Therefore based on her ongoing symptoms and did nondiagnostic results of both the x-ray and PFTs I will request a CT scan of the chest to better address her symptoms. Also reviewed her EKG. No significant findings noted. The patient will benefit from a cardiac evaluation for undergoing a cardiopulmonary exercise tolerance test in case of the etiology of her symptoms are still unclear. 02/24/2022 the patient is here for a pulmonary follow-up visit. Overall she is doing better. Her shortness of breath has slowly improved. She continues to exercise regularly without significant limitations of her breathing. we did review her pulmonary function studies which were reassuring without any obstructive nor restrictive ventilatory defects. The patient also underwent a CT scan of the chest with demonstrating normal lung parenchyma. However, she did have a small subcentimeter pulmonary nodule that will need follow-up in a year's time. Patient will continue exercising regularly. If the patient has persistent symptoms or any worsening symptoms, then we can consider a cardiopulmonary stress test to further address the issues. In the meantime though I am reassured that her symptoms are better and I am hopeful that she will continue improving. 08/28/2022 the patient is here for pulmonary follow-up visit. Initially she was feeling better with less shortness of breath. When she started developing worsening shortness of breath again. Typically with minimal activity. Specially when going up a flight of stairs or ill. She has moderate shortness of breath the point that she needs to stop she is doing. She also has a hard time speaking when she is walking because she gets also winded. She was concern for lung cancer. Again, we did review her CT scan of the chest demonstrating no significant parenchymal disease in the only finding is small subcentimeter pulmonary nodules. The patient will have another CT scan sometime in February. During the visit we did go for brief walking oximetry in quickly a heart rate went up to 146 beats per minute just going up few steps. The patient was visibly winded with the a dyspnea score of 7/10. The patient has not had a cardiac workup. Her pulse ox was stable throughout. The patient does not have any significant wheezing to benefit from any inhaler therapy. I do believe that a cardiac evaluation is warranted and also would consider a cardiopulmonary exercise tolerance test in the near future. 10/09/2022 the patient is here for pulmonary follow-up visit. She recently had her stress echo. In the meantime she continues to have significant shortness of breath when exerting herself. Initially the results were relatively normal on the stress test report. However, I did get a call from Cardiology and also the echo lab that the pictures were suboptimal and they will need to repeat it. In the meantime I did request that her pulmonary pressures are estimated also during her stress test which they will do when his repeated. Also was recommended that she have a formal echocardiogram. Therefore 1 will be requested. He more breathing standpoint the patient is well when she is resting or walking. She walks a few miles a day. It is small when she is exerting herself the becomes limited. When she did have the stress test she would only meet a MET of 7 which is that low level. The patient also will start a respiratory inhaler to see if this provides some relief. She is also going to start providing Jovanni interval training to increase her aerobic capacity. Once she does have the repeat stress echo and also her formal echo will follow-up with results. 03/06/2023 the patient is here for a pulmonary follow-up visit. The patient overall is doing about the same. Still complaining of dyspnea with minimal activity he had also significant palpitations. The patient did follow-up with Cardiology. We do not hyperinflation as of yet. The patient is scheduled to undergo a cardiopulmonary exercise stress test. I do believe that this will be helpful trying to delineate her symptoms. I will not provide her any medications at this time specially until after the study. She continues to have some degree of daytime drowsiness. She already has sleep study demonstrating no evidence of any sleep apnea to wire about. She also had a repeat CT scan of the chest demonstrating stable pulmonary nodules which is reassuring. The patient also underwent pulmonary function studies demonstrating no significant disease. I did recommend pulmonary rehabilitation at this time specially for post COVID syndrome. Will plan to follow-up in 6 months time. 01/13/2025 the patient is here for pulmonary follow-up visit. The patient is still complaining of dyspnea on exertion. Even with minimal activities specially will go a flight of stairs. She gets very winded. Again she had a cardiac evaluation at some point. We also did a full workup without any significant findings. Her cardiopulmonary exercise tolerance test suggested a respiratory reserve limitation. But when we went on our own brief walking oximetry up the stairs she does get dyspneic with dyspnea score 6/10 and heart rate does go up to about 150 beats per minute with minimal activity. Therefore need to consider underlying exercise-induced pulmonary hypertension as a potential diagnosis. Will go ahead and request blood work including a BNP to see this evidence of any cardiac strain. 04/27/2025 the patient is here for a pulmonary follow-up visit. The patient overall has been doing fair. She has been coughing now for about 3 weeks. Her cough is typically nonproductive. Positive sick contacts. She has also been noticing some wheezing chest tightness. She does have a rescue inhaler but she is concerned about using it. She also has underlying pulmonary nodules and has a family history positive for laryngeal cancer and esophageal cancer and that worries her significantly. She is concerned about the possibility of cancer specially with the pulmonary nodules. She did have a CT scan back in 2022 demonstrating pulmonary nodules which are subcentimeter in nature. And had not changed a year prior. Therefore, will go ahead and repeat a chest x-ray at this time to assess her ongoing symptoms especially with her intermittent chest pain. If the x-ray is abnormal then will go ahead and request a CT scan to further address those abnormal findings. If her x-ray is not abnormal but if she continues to be symptomatic she may still need a CAT scan to further address those symptoms. I am hopeful that the medication regimen provided will provide her some relief of the ongoing cough and chest discomfort. Patient follow-up in 3-4 months if she has any issues prior to that she will call for an earlier assessment. [facility] Medical History (Updated 04/27/25 @ 22:20 by Bo Izquierdo MD) Cough COVID-19 Tachycardia Pulmonary nodule Dyspnea Chest pain Social History Patient Tobacco Use Status: Former Tobacco user Tobacco use type: Cigarette Years Smoked: 5 Years Review of Systems Const Denies night sweats ENT Denies change in voice, Reports hoarseness, Denies lip swelling, Denies mouth pain, Reports nasal congestion and Denies tongue swelling Card Denies chest pain and Reports dyspnea on exertion Resp Reports cough and Reports dyspnea on exertion GI Denies abdominal pain Musc Denies no additional complaints Neuro Denies Neuro-related abnormal movements Psych Denies no additional complaints Liborio/Lymph Denies easy bleeding and Denies lymphadenopathy Aller/Immun Denies lip swelling and Denies tongue swelling Physical Exam Vital Signs: Last Vital Signs Pulse 88 04/27/25 15:24 BP 110/72 04/27/25 15:24 Pulse Ox 97 04/27/25 15:24 Oxygen Delivery Method Room Air 04/27/25 15:24 BMI result Body Mass Index 27.6 Const General: alert Neck Neck: Yes normal visual inspection, Yes full ROM and Yes no lymphadenopathy Chest Chest palpation & inspection: normal inspection of the chest Resp Auscultation: wheezes and diminished lung sounds Cardio Rate: regular rate Rhythm: regular rhythm Heart sounds: S1 normal heart sound present and S2 normal heart sound present Skin General skin exam: rashes and/or lesions noted Assessment & Plan Assessment & Plan (1) Dyspnea: Code(s): R06.00 - Dyspnea, unspecified Category: Medical Qualifiers: Dyspnea type: dyspnea on exertion Qualified Code(s): R06.09 - Other forms of dyspnea (2) Tachycardia: Code(s): R00.0 - Tachycardia, unspecified Category: Medical (3) Pulmonary nodule: Code(s): R91.1 - Solitary pulmonary nodule Category: Medical (4) Asthma: Code(s): J45.909 - Unspecified asthma, uncomplicated Category: Medical Qualifiers: Asthma severity: mild Asthma persistence: intermittent Asthma complication type: with acute exacerbation Qualified Code(s): J45.21 - Mild intermittent asthma with (acute) exacerbation (5) Cough: Code(s): R05.9 - Cough, unspecified Category: Medical Qualifiers: Cough type: acute Qualified Code(s): R05.1 - Acute cough Plan start Medrol pk start Azythromycin for bronchitis MAR as needed Tessalon pearls as needed CXR, if abnormal will need a CT chest. follow-up in 4-6 months Orders: Orders XR chest 2V Today R91.1 - Solitary pulmonary nodule Medications: New azithromycin 500 mg PO DAILY 5 tabs 0RF 5 days methylprednisolone (Medrol (Chris)) PO PER PKG DIR 21 ea 0RF 6 days benzonatate 200 mg PO BID PRN 60 caps 0RF cough 30 days Coding Level of Care Code Est Pt Level 4 (39694) Diagnoses Dyspnea on exertion R06.09 Dyspnea type: dyspnea on exertion Tachycardia R00.0 Pulmonary nodule R91.1 Mild intermittent asthma with acute exacerbation J45.21 Asthma severity: mild Asthma persistence: intermittent Asthma complication type: with acute exacerbation Acute cough R05.1 Cough type: acute Time Spent (min) 17
[2025-04-27 15:24] VITALS: BP 110/72; PULSE 88; O2SAT 97; BMI 27.6
--- OUTSIDE RECORDS SUMMARY | 2025-04-27 17:04 | XMS_ITS | Data Portability ---
Author Organization [facility], Main Office Address [address] [facility] [address] [place] [address] Care Team Providers Care Sand Plant Attendant Name Role Phone VERONICA CARRILLO Referring Provider [phone] JAME HAYDEN Rod Puller And Coiler [phone] DANYELLE BARBA Primary Care Provider AMANDA STAUFFER Miller Head Wet Process Assessment Encounter Date Assessment Date Assessment LastModified by Organization Details LastModified Time 07/25/2023 07/25/2023 Katty presents to the office [...] Organization Details Last Modified Time Details Appointments FOLLOW UP 2024 03:30P M DANYELLE BARBA MD Not available Not available Not available Lab iron + total iron-b inding capaci ty (TIBC) , serum 2024 025 BECK [facility] (Centralized Electronic Ordering - All Locations), Patient Can Go To The Location Of Their Choice, 04/14/2025 08:36:52 ferrit in, serum or plasma 2024 025 BECK [facility] (Centralized Electronic Ordering - All Locations), Patient Can Go To The Location Of Their Choice, 04/14/2025 08:36:52 vitami n D, 25-hyd roxanne, total, serum 2024 025 BECK [facility] (Centralized Electronic Ordering - All Locations), Patient Can Go To The Location Of Their Choice, 04/14/2025 08:36:52 vitami n B12, serum 2024 025 BECK [facility] (Centralized Electronic Ordering - All Locations), Patient Can Go To The Location Of Their Choice, 04/14/2025 08:36:52 lipid panel, serum 2024 025 BEC[facility], [address], [place], [address], 04/14/2025 08:36:52 TSH, ultra- sensit helio, serum 2024 025 BECK [facility], [address], [place], [address], 04/14/2025 08:36:51 lipid panel, serum 2023 024 [email or web address] [facility], [address], [place], [address], 07/07/2024 09:52:44 BMP, serum or plasma 2023 024 BECK [facility], [address], [place], [address], 04/08/2024 14:40:56 CBC w/ auto diff 2023 024 BECK [facility], [address], [place], [address], 04/08/2024 14:40:56 TSH, ultra- sensit helio, serum 2023 024 [email or web address] [facility], [address], [place], [address], 07/07/2024 09:52:44 rapid SARS CoV 2 Ag, QL IA, respir atory specim en 2022 023 [email or web address] In-Office Order, Internal Use Only DO Not Attach Compendium DO Not Attach Compendium, Do Not Delete/merge, [id number] 07/25/2023 14:19:07 rapid flu (A+B) 2022 023 BECK In-Office Order, Internal Use Only DO Not Attach Compendium DO Not Attach Compendium, Do Not Delete/merge, [id number] 07/25/2023 14:39:22 Referral None record ed. Procedures colono scopy screen ing (PROC) 2023 024 [email or web address] Not available 04/08/2024 15:55:24 Surgeries None record ed. Imaging XR, chest, 2 view 2023 024 Not available 01/27/2025 14:16:31 XR, chest, 2 view - cough, conges tion, wheezi ng x3 days. rule in/out pneumo chanelle 2022 023 [facility], [address], [place], [address], 07/25/2023 15:24:35 Medication Orders Zithro max Z-Chris 250 mg tablet 2022 023 [email or web address] [facility] #[id number], [address] [place], [address], 04/08/2024 14:18:01 flucon azole 150 mg tablet 2022 023 [email or web address] [facility]/Pharmacy #0315, [address] [place], [address], 04/14/2025 08:14:39 famoti dine 20 mg tablet 2022 023 rudi [facility], [address] [place], [address], 07/25/2023 13:06:04 metopr olol tartra te 25 mg tablet 2022 023 [email or web address] [facility], [address] [place], [address], 04/03/2023 08:45:01 Patient TargetsNo targets recorded. Patient Instructions Encounter Date Encounter Id Patient Instructions Last Modified By Organization Details Last Modified Time 12/18/2022 [id number] Patient will fol low up and keep appointment as scheduled. [email or web address] Not available 12/18/2022 14:04:37 04/03/2023 [id number] Well Visit, Ages 18 to 65: Care Instructions Not available 04/03/2023 09:53:30 medical record request* Not available 04/03/2023 13:19:23 04/08/2024 [id number] Well Visit, Ages 18 to 65: Care Instructions Not available 04/08/2024 14:40:39 04/14/2025 [id number] medical record request* Not available 04/23/2025 10:20:35 gastroesophageal reflux disease (GERD): care instructions Not available 04/14/2025 08:36:46 high cholesterol : care instructions Not available 04/14/2025 08:36:46 Reason for Referral None Reported. Results Created Date Observation Date Name Description Value Unit Range Abnormal Flag Note LastModifiedBy Organization Detail LastModifiedTime 07/25/2007/25/2023 rapid flu (A+B) Flu A negati ve Not Available In-Office Order Internal Use Only DO Not Attach Compendium DO Not Attach Compendium, Do Not Delete/merge, [id number] 07/25/2023 13:11:58 07/25/20 23 07/25/2023 rapid flu (A+B) Flu B negati ve Not Available In-Office Order Internal Use Only DO Not Attach Compendium DO Not Attach Compendium, Do Not Delete/merge, [id number] 07/25/2023 13:11:58 07/25/2007/25/2023 rapid SARS CoV 2 Ag, QL IA, respi rator y speci men RAPID SARS COV 2 negati ve Not Available In-Office Order Internal Use Only DO Not Attach Compendium DO Not Attach Compendium, Do Not Delete/merge, [id number] 07/25/2023 13:11:57 04/03/2003/08/2023 MAMMO , scree winter, bilat eral No observ ation record ed. [facility] [employer] [address], [address], 04/03/2023 10:02:14 07/25/2007/25/2023 XR, chest , 2 view Chest 2 Views Fronta l and Lat Reason : pneumo chanelel, cough, conges tion, wheezi ng x3 days. [...] IMPRES BRYAN: No acute abnorm ality. WSN: [id number] Orderi ng Physic lindsey: Binta Booth Y Dictat ed By: Nabil Segura MD Dictat ed Date/T amina: 3:21 pm Review ed By: Nabil Segura MD Signed By: Nabil Segura MD Signed Date/T amina: 3:21 pm Transc ribed By: EBONY Transc ribed Date/T amina: 3:19 pm Patien t Class: Outpat ient [email or web address] [facility] (Outpt Imaging) [address], [place], [address], 07/25/2023 15:36:23 07/25/20 23 07/25/2023 XR, chest , 2 view No observ ation record ed. [email or web address] [facility] [address] [place], [address], 07/27/2023 09:30:42 01/28/20 25 01/27/2025 XR, chest , 2 view Chest 2 Views Fronta l and Lat Reason : pain COMPAR COREY: Multip le priors with the most recent dated 023. FINDIN GS: LINES AND TUBES: None. LUNGS AND PLEURA : Clear lungs. Normal pulmon angie vascul arity. No pleura l effusi on. No pneumo thorax . HEART, MEDIAS TINUM AND UBALDO: Heart is normal in size. Normal medias tinal and hilar contou r. BONES AND SOFT TISSUE S: No acute abnorm ality. IMPRES BRYAN: No acute abnorm ality. WSN: [id number] Orderi ng Physic lindsey: Francis Ramos ie Dictat ed By: Jeevan Hewitt MD, V Dictat ed Date/T amina: 12:19 p Review ed By: Jeevan Hewitt MD, V Signed By: Jeevan Hewitt MD, V Signed Date/T amina: 12:19 pm Transc ribed By: EBONY Transc ribed Date/T amina: 12:18 pm [facility] [address] [place], [address], 01/27/2025 15:17:43 Result Notes Documentation Provider Name and Address Organization Details Recorded Time Xr, Chest, 2 View : Chest 2 Views Frontal and Lat Reason: pneumonia, cough, congestion, wheezing x3 days. r o PNA COMPARISON: 11/09/2021. FINDINGS: LINES AND TUBES: None. LUNGS AND PLEURA: No focal consolidation. Normal pulmonary vascularity. No pleural effusion. No pneumothorax. HEART, MEDIASTINUM AND UBALDO: Unchanged cardiomediastinal silhouette. BONES AND SOFT TISSUES: No acute abnormality. IMPRESSION: No acute abnormality. WSN: [id number] Ordering Physician: Binta Booth Dictated By: Veronica Segura MD Dictated Date/Time: 07/25/23 3:21 pm Reviewed By: Veronica Segura MD Signed By: Veronica Segura MD Signed Date/Time: 07/25/23 3:21 pm Transcribed By: EBONY Transcribed Date/Time: 07/25/23 3:19 pm Patient Class: Outpatient MERLE RAMSAY [address], [place], [address], [facility] 07/25/2023 15:36:23 Xr, Chest, 2 View : Chest 2 Views Frontal and Lat Reason: pain COMPARISON: Multiple priors with the most recent dated 07/25/2023. FINDINGS: LINES AND TUBES: None. LUNGS AND PLEURA: Clear lungs. Normal pulmonary vascularity. No pleural effusion. No pneumothorax. HEART, MEDIASTINUM AND UBALDO: Heart is normal in size. Normal mediastinal and hilar contour. BONES AND SOFT TISSUES: No acute abnormality. IMPRESSION: No acute abnormality. WSN: [id number] Ordering Physician: Danyelle Barba Dictated By: Jeevan Funez MD, V Dictated Date/Time: 01/27/25 12:19 p Reviewed By: Jeevan Funez MD, V Signed By: Jeevan Funez MD, V Signed Date/Time: 01/27/25 12:19 pm Transcribed By: EBONY Transcribed Date/Time: 01/27/25 12:18 pm Patient Class: Outpatient DANYELLE BARBA MD [address], [place], [address], [facility] 01/27/2025 14:16:25 Problems Name Problem SNOMED Code Status Onset Date Resolution Date Notes Provider Name and Address Organization Details Recorded Time Screenin g for malignan t neoplasm of cervix Completed 201109/20/2016 RECORDED 04/15/20 12 1:24PM BY FRANCHESCA MAN, OFFICE VISIT CHIQUITA Mcnair, [facility] 6 15:59:04 Neck pain 00317381 Completed 201109/20/2016 IMPRESSI ON: NOW DAILY FOR ONE WEEK, WILL TX WITH FLEXERIL AND START PT; RECORDED 04/15/20 12 1:24PM BY FRANCHESCA MAN, OFFICE VISIT CHIQUITA Mcnair, [facility] 6 15:59:29 Follow-u p encounte r Completed 201109/20/2016 RECORDED 07/31/20 12 3:13PM BY JENNA BEARDEN MA, TRANSITI ON OF CARE CHIQUITA Mcnair, [facility] 6 15:59:23 Headache 67396981 Completed 201101/08/2017 IMPRESSI ON: PT WITH CONTINUE D DAILY HEADACHE S, COME ON LATER IN [facility], NOW WITH DAILY NECK PAIN FOR THE [...] BY FRANCHESCA MAN, OFFICE VISIT Crystal mcintyre [facility] 7 16:01:16 Malaise and fatigue 090239086 Completed 201101/08/2017 IMPRESSI ON: TIRED FOR 3 MONTHS, NOT EATING BREAKFAS T, HAVING SOME TENSION HEADACHE S, NOT ENOUGH PROTEIN, EAT 5 SMALL MEALS, CHECK LABS, EXERCISE , WATER, FOLLOW UP 3 MONTHS; RECORDED 04/15/20 12 1:24PM BY FRANCHESCA MAN, OFFICE VISIT Crystal mcintyre [facility] 7 16:01:21 Motion sickness 96729603 Completed 201201/08/2017 RECORDED 02/14/20 13 2:48PM BY CRYSTAL Sher MD, PHONE ENCOUNTE R Crystal mcintyre [facility] 7 16:01:30 Administ ration of bacteria l and viral vaccine Completed 200705/26/2014 RECORDED 01/17/20 08 3:24PM BY SEGUNDO JUAREZ MA, OFFICE VISIT Not Available [facility] 4 13:40:28 Adult health examinat ion Completed 201109/20/2016 IMPRESSI ON: PAP IS UTD, SHOULD DO SOME EXERCISE ; RECORDED 04/15/20 12 2:27PM BY CRYSTAL Sher MD, OFFICE VISIT CHIQUITA Mcnair, [facility] 6 15:59:14 Adult health examinat ion Completed 200805/26/2014 RESOLVED DATE: 04/30/20 09; IMPRESSI ON: PAP UTD, EXERCISE MORE; RECORDED 04/30/20 3:47PM BY KRISS KOROMA ON/ADDEN DUM CHIQUITA Mcnair, [facility] 6 15:59:14 Syncope and collapse 221056380 Completed 201101/08/2017 IMPRESSI ON: SEE HX SOUNDS [...] CRYSTAL Sher MD, [facility] 16:[facility]27 Abnormal weight loss 186397784 Completed 201101/08/2017 IMPRESSI ON: SEE TOP OF [...] CRYSTAL Sher MD, OFFICE VISIT Crystal mcintyre [facility] 7 16:01:19 Candidal vulvovag initis 94660448 Completed 201209/20/2016 RECORDED 05/28/20 13 10:55AM BY JERSON ENCARNACIONBC, NURSE TRIAGE Franchesca Man MA miguelina [facility] 6 15:59:26 Candidal vulvovag initis 25237726 Completed 201105/26/2014 RECORDED 05/31/20 12 2:43PM BY HUGO ENCARNACION, NURSE TRIAGE Franchesca Man CHIQUITA miguelina [facility] 6 15:59:26 Screenin g for malignan t neoplasm of breast Completed 201309/20/2016 RECORDED 04/28/20 14 7:05AM BY CHAGO ARMAS, HISTORIC AL SUMMARY Franchesca Man MA miguelina [facility] 6 15:59:11 Administ ration of bacteria l and viral vaccine Completed 200706/18/2014 RECORDED 01/17/20 08 3:24PM BY SEGUNDO JUAREZ MA, OFFICE VISIT Not Available [facility] 4 12:10:32 Administ ration of bacteria l and viral vaccine Completed 200706/19/2014 RECORDED 01/17/20 08 3:24PM BY SEGUNDO JUAREZ MA, OFFICE VISIT Not Available [facility] 4 03:32:17 Hypercho lesterol emia 06261465 Completed 01/08/2017 Crystal mcintyre [facility] 7 16:01:14 Lymphade nopathy 40900644 Completed 01/08/2017 Crystal mcintyre [facility] 7 16:01:24 Fatigue 03628146 Completed 01/08/2017 Crystal mcintyre [facility] 7 16:01:32 Hyperlip idemia 91951419 Active 2011 Not Available [facility] 2 00:52:31 Depressi ve disorder 04078309 Completed 201502/19/2019 Crystal mcintyre [facility] 9 15:36:59 Mammogra [facility] breast density 597083117 Active 2017 Not Available [facility] 2 00:52:31 Herpes simplex 51014996 Active 2011 Not Available [facility] 2 00:52:31 Dyspnea on exertion 76798722 Active 2020 Not Available [facility] 2 00:52:31 Gastroes ophageal reflux disease 350324419 Active 2021 Not Available [facility] 2 00:52:31 Problem Notes None recorded. Procedures Surgical History Date Name Laterality Status Provider Name and Address Organization Details Recorded Time 5 Most Recent Mammogram completed Franchesca Man MA [facility] 04/14/2025 08:15:48 5 Date of Last Colonoscopy completed Franchesca Man MA [facility] 04/14/2025 08:16:25 4 Date of Last Pap Smear completed Franchesca Man MA [facility] 04/08/2024 14:22:24 9 Mammogram both breasts completed Yuliya Money [facility] 10/28/2019 09:34:13 5 Tubal Ligation completed Franchesca Man MA [facility] 08/05/2021 15:45:22 surgical removal completed DANYELLE BARBA MD [address], [address], [facility] 04/14/2025 08:26:18 Imaging Results None recorded. Procedure Notes None recorded. Medical Equipment None [...] le 150 mg tablet TAKE 1 TABLET BY MOUTH NOW. REPEAT IN 72 HOURS 04/14 completed Not Available Not Available Not Available [...] Not Available valacyclo vir 500 mg tablet TAKE 1 TABLET DAILY active Not Available Not Available No t [...] Not Available Not Available No t Available GaviLyte- G 236 gram-22.7 4 gram-6.74 gram-5.86 gram oral solution TAKE 240 ML BY MOUTH EVERY 10 MINUTES, UNTIL 4 LITERS ARE CONSUMED OR THE RECTAL EFFLUENT IS CLEAR 04/14 completed Not Available Not Available Not Available Flowflex COVID-19 Antigen Home Test kit FOLLOW INSTRUCT IONS INCLUDED WITH THE PACKAGE. 04/03 completed Not Available Not Available Not Available Paxlovid 300 mg (150 mg x 2)-100 mg tablets in a dose pack Take 3 tablets twice a day by oral route as directed for 5 days. 09/22 completed Not Available Not Available Not Available Airsupra 90 mcg-80 mcg/actua tion HFA aerosol inhaler INHALE 2 PUFFS BY MOUTH TWICE A DAY NEEDED FOR SHORTNES S OF BREATH active Not Available Not Available No t Available Vitals Date Recorded Heart rate Provider Name an d Address Organization Details Last Updated DateTime 12/18/2022 88 /min Chance Gonzalez [address], [address], [facility] 12/18/2022 13:42:11 Date Recorded Body height Body mass index (BMI) Body weight Oxygen saturation Oxygen saturation in Arterial blood by Pulse oximetry Heart rate Body temperature Systolic blood pressure Diastolic blood pressure Provider Name and Address Organization Details Last Updated DateTime 3 157.48 cm 26.6 kg/m2 58579.2 9 g 99 % 99 % 100 /min 98.5 [degF] 128 mm[Hg] 80 mm[Hg] Franchesca Man MA [facility] 3 13:10:39 Date Recorded Body height Body mass index (BMI) Body weight Heart rate Oxygen saturation Oxygen saturation in Arterial blood by Pulse oximetry Body temperature Systolic blood pressure Diastolic blood pressure Provider Name and Address Organization Details Last Updated DateTime 3 157.48 cm 27.3 kg/m2 62186.9 6 g 92 /min 99 % 99 % 98.4 [degF] 120 mm[Hg] 76 mm[Hg] Alexander Ortiz MA [facility] 3 08:47:56 Date Recorded Body height Body mass index (BMI) Body weight Oxygen saturation Oxygen saturation in Arterial blood by Pulse oximetry Heart rate Body temperature Systolic blood pressure Diastolic blood pressure Provider Name and Address Organization Details Last Updated DateTime 4 157.48 cm 27.8 kg/m2 65773.4 4 g 98 % 98 % 83 /min 98.3 [degF] 118 mm[Hg] 74 mm[Hg] Franchesca Man MA [facility] 4 14:17:19 Date Recorded Body height Body mass index (BMI) Body weight Oxygen saturation Oxygen saturation in Arterial blood by Pulse oximetry Heart rate Body temperature Systolic blood pressure Diastolic blood pressure Provider Name and Address Organization Details Last Updated DateTime 5 157.48 cm 27.7 kg/m2 87520.5 5 g 99 % 99 % 83 /min 97.9 [degF] 128 mm[Hg] 82 mm[Hg] Franchesca Man MA [facility] 5 08:14:02 Date Recorded Body height Body mass index (BMI) Body weight Heart rate Oxygen saturation Oxygen saturation in Arterial blood by Pulse oximetry Body temperature Systolic blood pressure Diastolic blood pressure Provider Name and Address Organization Details Last Updated DateTime 3 157.48 cm 27.6 kg/m2 29753.4 5 g 94 /min 98 % 98 % 98.7 [degF] 142 mm[Hg] 89 mm[Hg] Olivia Huddleston MA [facility] 3 13:03:26 Social History Question Answer Notes LastModified by Organizat ion Details LastModified Time Tobacco Smoking Status [facility] 15:40:16 Is Blood Transfusion Acceptable In An Emergency? Yes [email or web address] Information not available 12/10/2015 What Is Your Level Of Caffeine Consumption? Moderate [email or web address] Information not available 08/04/2020 How Much Tobacco Do You Chew? None [email or web address] Information not available 08/04/2020 What Type Of Diet Are You Following? REGULAR [email or web address] Information not available 12/09/2014 Are There Any Guns Present In Your Home? 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 With Others [email or web address] Information not available 04/26/2022 Do You Take Precautions To Prevent Distracted Driving? Yes [email or web address] Information not available 12/10/2015 How Often Do You Need To Have Someone Help You When You Read Instructions, Pamphlets, Or Other Written Material From Your Doctor Or Pharmacy? Never [email or web address] Information not available 08/04/2020 Have You Served In The ? No [email or web address] Information not available 01/08/2017 Have You Or Anyone In Your Household Had Any Of The Following Symptoms In The Last 14 Days: Sore Throat, Cough, Chills, Body Aches For Unknown Reasons, Shortness Of Breath For Unknown Reasons, Loss Of Smell, Loss Of Taste, Fever At Or Greater Than 100 Degrees Fahrenheit? No [email or web address] Information not available 08/04/2020 Are You Or Anyone In Your Household A Health Care Provider Or Emergency Responder? No Information not available 08/04/2020 To The Best Of Your Knowledge Have You Been In Close Proximity To Any Individual Who Tested Positive For COVID-19? No [email or web address] Information not available 08/04/2020 Have You Recently Traveled To A COVID-19 High Risk Area Or Gathering In The Last 10 Days? No [email or web address] Information not available 08/05/2021 What Was The Date Of Your Most Recent Tobacco Screening? 04/14/2025 [email or web address] Information not available 04/14/2025 How Many Children Do You Have? 3 [email or web address] Information not available 12/09/2014 Do You Use Protection During Sex? No [email or web address] Information not available 08/04/2020 What Is Your Relationship Status? [email or web address] Information not available 04/26/2022 Do You Use Your Seat Belt Or Car Seat Routinely? Yes Information not available 08/05/2021 Seat Belts Used Routinely Yes [email or web address] Information not available 04/26/2022 Are You Sexually Active? Yes [email or web address] Information not available 08/04/2020 Smoke Alarm In Home No [email or web address] Information not available 04/26/2022 Do You Have Smoke And Carbon Monoxide Detectors In Your Home? Yes [email or web address] Information not available 08/05/2021 Are You Passively Exposed To Smoke? Yes Information not available 08/04/2020 General Stress Level Medium [email or web address] Information not available 04/26/2022 Do You Use Sunscreen Routinely? Yes [email or web address] Information not available 12/09/2014 Sex: Unknown Functional Status Question Answer Note LastModified by Organizat ion Details LastModified Time Do you use any illicit or recreational drugs? No Information not available 04/03/2023 What is your level of alcohol consumption? Occasional [email or web address] Information not available 12/09/2014 Do you or have you ever used smokeless tobacco? Never used smokeless tobacco [email or web address] Information not available 08/04/2020 Are you currently employed? Yes [email or web address] Information not available 12/09/2014 Are you able to walk? YESWOREST [email or web address] Information not available 04/26/2022 Are you able to care for yourself? 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 Never used electronic cigarettes [email or web address] Information not available 04/26/2022 What is your exercise level? Occasional Information not available 04/03/2023 Mental Status None recorded. Family History Relationship Description Onset Age of this Age Resolved Age Notes LastModified by Organization Details LastModified Time Mother Hypertensive disorder [email or web address] Not available 12/10 15:46:40 Mother Hypercholest erolemia [email or web address] Not available 12/10 15:46:40 Mother Carcinoma in situ of esophagus [email or web address] Not available 04/26 10:37:29 Mother Allergy [email or web address] Not availabl e 08/05/2021 15:45:10 Mother Arthritis [email or web address] Not availa ble 08/05/2021 15:45:10 Father Malignant tumor of pharynx Not available 04/26 10:37:29 Father Asthma [email or web address] Not available 08/05/2021 15:45:10 Maternal Grandmother Rheumatoid arthritis [email or web address] Not available 04/26 10:37:29 Paternal Grandmother Carcinoma of stomach [email or web address] Not available 04/26 10:37:30 Notes:No FH of colon or hussain st cancer Medical History Condition Response Gout N Other N Kidney Stones N Blood Diseases N Hyperthyroidism N Breast Cancer N Hypothyroidism N Lung Disease N Depression N COPD N Defects or Inherited Disease N Anesthesia Complications N Headaches/Migraines N Anxiety Disorder Y Varicose Veins N Obesity N Vision or Eye Problems N Arthritis N Head Injury/Concussion N Infertility N Polyps N Congenital Anomalies N Acid Reflux (GERD) Y Cancer N Stroke N ADHD N Endometriosis N High Cholesterol N Liver Disease N Fibromyalgia N Kidney Disease N Heart Problems N Ear or Hearing Problems N Hospitalizations N Thyroid Problems N GI Problems N Acne N Eating Disorder N Skin Problems N Anemia N Constipation N Bladder Problems Y Mental Illness N Diabetes N Ovarian Cancer N Blood Transfusions N Seizures/Epilepsy N Tuberculosis N AIDS/HIV N Congestive Heart Failure (CHF) N Eczema N Abuse/Domestic Violence N Diverticulitis N Asthma N Allergies N Reflux/GERD Y Hepatitis N Pulmonary Embolism N Hypertension N Chicken Pox N Autism Spectrum Disorder (ASD) N Osteoporosis N Gynecological History Statement/Question Response Date of Last Pap Smear 03/12/2024 Date of Last Colonoscopy 12/13/2024 Most Recent Mammogram 03/17/2025 Obstetrics History GPAL:G 0 P 0 0 0 0 Immunizations Vaccine Type Date Status Note Provider Name and Address Organization Details Recorded Time Influenza, split virus, quadrivalent, preservative 017 completed Not Available [facility] 12/10/2021 00:52:31 Influenza, split virus, quadrivalent, preservative 018 completed Not Available [facility] 12/10/2021 00:52:32 COVID-19, mRNA, LNP-S, PF, 30 mcg/0.3 mL dose, zuly-sucrose 022 completed CHIQUITA Mcnair [facility] 09/16/2022 10:44:21 COVID-19, mRNA, LNP-S, PF, 30 mcg/0.3 mL dose 021 completed CHIQUITA Mcnair [facility] 09/16/2022 10:44:21 COVID-19, mRNA, LNP-S, PF, 30 mcg/0.3 mL dose 021 completed CHIQUITA Mcnair [facility] 09/16/2022 10:44:21 influenza, seasonal, intradermal, preservative free 014 completed CHIQUITA Mcnair, [facility] 09/16/2022 10:44:21 Influenza, split virus, quadrivalent, PF 020 completed CHIQUITA Bradley, [facility] 09/22/2022 10:51:40 Td (adult), 2 Lf tetanus toxoid, preservative free, adsorbed 019 completed CHIQUITA Bradley, [facility] 09/22/2022 10:51:40 Influenza, split virus, quadrivalent, PF 016 completed Not Available [facility] 11/29/2019 02:22:02 Influenza, recombinant, quadrivalent, PF 022 completed CHIQUITA Bradley, [facility] 07/25/2023 13:06:43 Influenza, split virus, quadrivalent, PF 016 completed Not Available [facility] 11/29/2019 02:22:07 Influenza, split virus, quadrivalent, PF 021 cancelled patient objection Crystal raymundo null, [facility] 11/13/2021 22:40:00 Tdap 008 completed Not Available [facility] 12/10/2021 00:52:32 Pneumococcal conjugate PCV20, polysaccharide GVD204 conjugate, adjuvant, PF 025 cancelled patient objection DANYELLE BARBA MD [address] [address], [place], [address], [facility] 04/14/2025 08:40:46 zoster recombinant 025 cancelled patient objection DANYELLE BARBA MD [address] [address], [place], [address], [facility] 04/14/2025 08:40:46 Past Encounters Encounter ID Performer Location Encounter Start Date Encounter Closed Date Diagnosis/Indication Diagnosis SNOMED-CT Code Diagnosis ICD10 Code Diagnosis Note [id number] autoEComm erce [address] [facility] [place] [address] 01/17/2008 00:00:00 [id number] autoEComm erce [address] [facility] [place] [address] 04/22/2009 00:00:00 [id number] autoEComm caylae [address] [facility] [place] [address] 04/30/2009 00:00:00 [id number] autoEComm erce [address] [facility] [place] [address] 04/15/2012 00:00:00 [id number] autoEComm caylae [address] [facility] [place] [address] 05/27/2012 00:00:00 [id number] autoEComm caylae [address] [facility] [place] [address] 06/12/2012 00:00:00 [id number] Crystal frazier MD Main Office [address] [facility] [address] [place] [address] 12/09/2014 15:18:07 12/09/2014 16:18:41 Adult health examination [id number] pt will get pa p and mammo is utd, is exercising , will add weight training. Hypercholesterolemia 24744671 check fasting [id number] Aravind Granger MD Main Office [address] [address] [place] [address] 05/11/2015 08:40:57 05/11/2015 09:48:34 Lymphadenopathy [id number] Reassuranc e regarding apparent reactive adenopathy . 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 Will test pt, no other risk factors. [id number] Crystal frazier MD Main Office [address] [address] [place] [address] 09/20/2016 15:52:32 09/20/2016 16:40:49 Influenza vaccine needed 6379127107 106 Z23 Anxiety 90676941 F41.9 counseling ot be arranged Insomnia 286116753 G47.0 0 very poor sleep despite spending many hours in bed, treat for sleep Major depr essive disorder 218769936 F32.9 start sertraline , will see pt back next week to check is sleeping better, on sertraline and getting counseling set up, will talkt jefe Dee here to see if can work her in [id number] Crystal frazier MD Main Office [address] [address] [place] [address] 09/27/2016 16:20:07 09/28/2016 11:50:30 Anxiety 88365811 F41.9 is in counseling , is taking sertraline 25mg and lorazepam for sleep, had 2 panic attacks, still not functionin g well at home continue counseling increase sertraline to 50mg and return in a month Panic attack 584303825 F 41.0 2 since last visit, uses lorazepam which helps [id number] Crystal frazier MD Main Office [address] [address] [place] [address] 11/01/2016 14:54:41 11/01/2016 15:36:23 Malaise and fatigue 334394383 R53.83 still not functionin g at baseline, missed soem work, low mood Anxiety 90609482 F41.9 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, she will increase sertraline to 75mg a day, not in counseling but I strongly encouraged her to, she will think about it, hopefully higher dose can help with motivation [id number] Crystal frazier MD Main Office [address] [address] [place] [address] 01/08/2017 15:19:46 01/08/2017 16:09:45 Adult health examination 543321669 Z00.00 pap and mammo utd, is active, Insomnia 876687167 G47.0 0 sleeping better, uses lorazepam for sleep, pt is aware and understand s to not use lorazepam in the daytime since she works as a [employer] sleeping much better, doing much better Major depr ession in partial remission 39425858 F32.4 mood much better. off meds, pt to watch for any signs of recurrence and restart zoloft if needed and she will let me know if she restarts med [id number] Crystal frazier MD Main Office [address] [facility] [address] [place] [address] 10/18/2017 13:57:34 10/18/2017 15:02:47 Acute pharyngitis 355736648 J02.9 neg quick strep, seems viral, rest motrin and fluids [id number] Crystal frazier MD Main Office [address] [place], [place] [address] [place] [address] 02/19/2019 15:11:50 02/19/2019 16:10:15 Adult health examination 700545560 Z00.00 pap and mammo utd, is active, , exhusband transition ed to female, has teenagers at home, they are doing well Screening for malignant neoplasm of breast 671846398 Z12.39 pt to arrange Urgent mima virgen to urinate 68840056 R39.15 is on abx, feeling better [id number] Crystal frazier MD Main Office [address] [place] [address] [place] [address] 05/30/2019 09:07:44 05/30/2019 09:59:18 Recurrent urinary tract infection 049126439 N39.0 treated by revenue integrity analyst or here, at least 3 this year, pt is also bothered with gardnerell a, abn pap, will drink more fluids and see urology, may need urodynamic s to make sure she is completely emptying and maybe post coital prophylaxi s Requires a tetanus booster 362837976 Z23 Increased frequency of urination 176596963 R35.0 see above Abnormal c ervical Papanicolaou smear 915815426 R87.619 getting a LEEP in 07/31 Gardnerella vaginitis 41 7551279 N76.0 recurrent, is on metrogel 2 times a week [address] Dr Carrillo due to needing a LEEP [id number] Crystal frazier MD Main Office [address] [address] [place] [address] 02/12/2020 10:55:46 02/17/2020 13:50:54 Acute vaginitis 43264319 N76.0 SYMPTOMS: vaginal itching? yes discharge? yes recent antibiotic exposure? yes feels like previous yeast infection? yes POSSIBLE CONTRAINDI CATIONS TO TELEPHONE TREATMENT: pelvic pain? no fever? no ? no pain with intercours e? PROVIDER ACTION: Reviewed nursing notes? Recommende d action appropriat e for telephone treatment Treatment fluconazol e x 2 doses, call if not improving. Can supplement with otc cream if needed. Call if not better in a few days. [id number] Crystal frazier MD Main Office [address] [place] [address] 06/10/2020 08:48:32 06/10/2020 09:44:51 Low back pain 866405189 M54.5 Rest, stretching at home, start PT [...] with > 50% counseling and coordinati on. [id number] Crystal frazier MD Main Office [address] [address] [place] [address] 08/04/2020 14:16:01 08/04/2020 15:02:48 Adult health examination 383399726 Z00.00 pap and mammogram are utd, Hyperlipidemia 30709868 E78.5 Needs infl uenza immunization 496873258 Z23 Recurrent urinary tract infection 842076966 N39.0 uses bactrim for prophylaxi s Gastroesop hageal reflux disease 727311785 K21.9 check labs, on meds, [id number] Crystal frazier MD [facility] [address] [address] [place] [address] 09/13/2020 13:26:14 09/14/2020 11:07:31 Gastroesophageal reflux disease 002677085 K21.9 neg labs, med has resolved symptoms, keep on for 6 weeks, then stop, if needs to use prn will do that [id number] Crystal frazier MD Main Office [address] [address] [place] [address] 08/05/2021 15:23:03 08/05/2021 16:17:23 Adult health examination 928220983 Z00.00 pap and mammogram are utd, severe fatigue see below, under stress, Fatigue 23695133 R53.83 see HPI. at end of visit we talked about depression , will get labs, f/u in 11/01. consider tx for depression if no other cause comes clear Dyspnea on exertion 6084 5006 R06.09 rule out anemia, very deconditio mat. start an exercise walking program. [id number] Jovan Valentino MD Main Office [address] [address] [place] [address] 08/30/2021 10:49:35 08/30/2021 11:44:44 Costal chondritis 13846180 M94.0 Neck pain 82407611 M54.2 Appears to be muscular. Possibly related to sleeping position or strain. Treat with exercises, NSAIDs and muscle relaxant. She will call next week if not improving and we will do a referral at that time. [id number] Crystal frazier MD Main Office [address] [address] [place] [address] 11/09/2021 15:53:55 11/09/2021 16:18:23 Needs influenza immunization 789297853 Z23 declined Dyspnea on exertion 6084 5006 R06.09 LAbs done 08/02 ruled out anemia and hypothyroi d, , very deconditio mat. start an exercise walking program. will evaluate with CXR and pulmonary referral ? adult onset asthma Gastroesop hageal reflux disease 502768544 K21.9 continue meds [id number] Lisseth Mchugh MD Main Office [address] [facility] [address] [place] [address] 04/26/2022 10:37:12 04/26/2022 11:19:05 Pain in toe 874104581 M79.674 check xray to rule out fracture or arthritis. Does not appear inflammato ry, would have her see podiatry for this. Consider labs if xray negative. Not consistent with gout at this time.. Call if worsening [id number] Adan Hill MD Main Office [address] [address] [place] [address] 09/16/2022 08:37:05 09/16/2022 12:02:39 COVID-19 266045749 U07.1 Based on duration of symptoms and comorbidit ies pt is a candidate for antiviral therapy. Common/ser ious potential side effects discussed. Advised to call if noted. Current isolation guidelines based on immunizati on status discussed as well as isolation if rebound infection occurs. Medication s reviewed and dosing adjusted as indicated with Paxlovid. Sore throat 179039112 J0 2.9 Salt water gargling and nasal saline advised. [id number] Adan Hill MD [facility] [address] [place] [address] [place] [address] 09/22/2022 10:16:33 09/22/2022 12:28:33 Acute sinusitis 30830564 J01.90 With second sickening/ onset new sinus symptoms following COVID there is reasonable concern for a secondary bacterial process. Will cover with augmentin. May need imaging and course of steroid if not slowly improving. Advised of common/ser ious potential medication side effects and to call with any problems. [id number] Adan Hill MD [facility] [address] [place] [address] [place] [address] 09/26/2022 13:24:28 10/12/2022 09:06:30 History of SARS-CoV-2 4737224715 08280602 Z86.16 rx'd c paxlovid x 3 days back on 11.5 Acute sinusitis 70841757 J01.90 sinuses feeling better - cont abx as dir, recommend probiotics while on abx see above - will add pred pulse to help c inflammati on of lungs/sinu ses p covid Dyspnea 812437388 R06.00 eric for past year - fol [...] copy of this note to pulm* Palpitations 38965893 R0 0.2 klarissa c exertion - apparently had nl ekg - recheck labs, klarissa check magnesium [id number] Adan Hill MD Main Office [address] [facility] [address] [place] [address] 12/18/2022 12:50:32 12/18/2022 14:11:14 Palpitations 24317944 R00.2 klarissa c exertion - apparently had [...] to pulm & card* Dyspnea on exertion 6020 5536 R06.09 eric for past year - fol [...] 03.04 --- see below about tmt trials [id number] DANYELLE BARBA MD Main Office [address] [place] [address] 04/03/2023 08:31:12 04/03/2023 09:11:47 Adult health examination 808970682 Z00.00 Health Maintenanc e FemaleA) Patient was [...] not this yearTdAP: 05/30/2019 Zoster: due at 99XNO33: due at 29OLCP63: due at 97UBY14:PC V15:COVID: 01/15/2021 , 02/07/2021 , 03/03/2022 D) Routine blood work ordered in ) Updated patient's history RTC in one year for annual exam or sooner if any acute complaints Gastroesop hageal reflux disease 520457446 K21.9 The following lifestyle changes are recommende [...] CPET testing- RTC in 6 months Anxiety 18448043 F41.9 - currently on lorazepam as needed for insomnia and anxiety Candidiasis of vagina 72 636985 B37.31 - currently having a yeast infection, diagnosed based on clinical symptoms [id number] MERLE RAMSAY Main Office [address] [address] 07/25/2023 12:46:12 07/25/2023 14:21:47 Cough 36587415 R05.9 Pneumonia 587884646 J18. 9 [id number] DANYELLE BARBA MD Main Office [address] [address] 04/08/2024 14:06:02 04/08/2024 14:45:59 Adult health examination 414909696 Z00.00 Health Maintenanc e FemaleA) Patient was [...] yearTdAP: 05/30/2019 Zoster: orderedPCV 13: due at 40HRUP90: due at 14LFR95:PC V15:COVID: 01/15/2021 , 02/07/2021 , 03/03/2022 D) Routine blood work orderedE) Updated patient's history RTC in one year for annual exam or sooner if any acute complaints Gastroesop hageal reflux disease 003423681 K21.9 The following lifestyle changes are recommende [...] work-up as she is feeling better Anxiety 92294471 F41.9 - currently on lorazepam as needed for insomnia and anxiety Screening for malignant neoplasm of colon 441712600 Z12.11 Fatigue 09406866 R53.83 Z00.00 Hyperlipidemia 19848561 E78.5 Z00.00 FASTING Chest wall pain 04737665 6 R07.89 - located at the left breast at 10 o'clock- revenue integrity analyst does not believe etiology is coming from the breast- pt did have stress test in 2022 was negative- will check chest x-ray- pt advised to try a course of anti-infla mmatories HIV screen ing declined 3518712394 51731 Z53.20 Varicella vaccination 68 630598 Z23 [id number] DANYELLE BARBA MD Main Office [address] [facility] [address] [facility] [place] [address] 04/14/2025 08:05:44 04/14/2025 08:44:10 General examination of patient 052617596 Z00.00 Health Maintenanc e FemaleA) Patient was counseled on healthy diet, exercise and nutrition due to BMI of 27.7 B) ScreeningL ast Mammogram: start at age 50 stop at 74Date: 03/17/2025 Result: BIRADS-1Ne xt: 03/2026 Last Pap smear: start at age 21 to age 65Date: 03/25/2025R esults: HPV negative, no atypical cellsNext: 3-5 years Last Colonoscop y: start at age 45-75Date: Result: Next: 12/2024 (had with [facility], will request) Last DEXA scan:Date: due at 65Result: ??? C) Vaccines:I nfluenza: not this yearTdAP: 05/30/2019 Zoster: refusedPCV 20: refusedCOV ID: 01/15/2021 , 02/07/2021 , 03/03/2022 D) Routine blood work orderedE) Updated patient's history RTC in one year for annual exam or sooner if any acute complaints Hyperlipidemia 60691824 E78.5 Z00.00 FASTING Gastroesop hageal reflux disease 601498136 K21.9 The following lifestyle changes are recommende d and counseled :-Losing weight: Losing weight helps people who are overweight to reduce acid reflux.-Ra ising the head of your bed six to eight inches-Luis iding foods that trigger symptoms ? Avoid excessive caffeine, chocolate, alcohol, peppermint , and fatty foods.- c/w famotidine 40mg as needed Dyspnea on exertion 6084 5006 R06.09 - improved but still present- with associated tachycardi a- c/w airsupra -> discussed with patient compliance as she is not taking BID as she should- has been following with pulm: last seen on 01/13/2025> CT chest showed pulmonary nodules, has repeat scheduled> ordered ESR, d-dimer which were negative> PFTs normal, 6 min walk test normal> also wanted CPET testing- has been following with cardio: last seen on 02/21/23> stopped the metoprolol > EKG normal, ECHO normal> stress test incomplete : was only able to sustain for 6 mins and echo portion was inconclusi ve> advised trial of CPAP- pt did not complete work-up as she is feeling better Anxiety 27219967 F41.9 - BENJAMÍN-7 score of 0- currently on lorazepam as needed for insomnia and anxiety Chest wall pain 53146051 6 R07.89 - intermitte nt, still present (last episode was one last month)- located at the left breast at 10 o'clock- revenue integrity analyst does not believe etiology is coming from the breast- pt did have stress test in 2022 was negative- chest x-ray: normal 01/27/2025- pt did have tenderness on physical exam, do believe this is MSK in origin as cardiac work-up was negative. pt has no hx of anxiety therefore do not believe it is coming from panic attack. could we be coming for acid reflux as well Fatigue 09661512 R53.83 Z00.00 Pain in bi lateral legs 2090613482 3378901 M79.604 M79.605 - intermitte nt- pt advised to drink more water- will order some blood testing- RTC in 6 months Vaccine de clined by patient 1082164691 02 Z28.20 Persistent cough 6001439 02 R05.3 - started after an URI- physical exam was reassuring - pt was advised to discuss with pulm as she will be seen on 04/26- will request results of CT lung once performed- recommende d to take the airsupra BID QD due to symptoms- can add on zyrtec as well Health Concerns Section Related Observation LastModified by Organization Detai ls LastModified Time None Recorded Concern Status LastModified by Organization Details LastModified Time None Recorded Advance Directives Directive None Recorded Payers Insurance Date Sequence Insurance Name Policy Number Policy Dunn Covered Member ID Dunn Member ID Guarantor Name 05/30/2019 1 [facility] [employer] [facility] [employer] [facility] [facility] (POS) [id number] Dom Yap [id number] Katty Boss 09/04/2023 1 [facility] (POS) [id number] Katty Rettura [id number] Katty Rettura 04/21/2025 1 [facility] (POS) Katty Rettura [id number] Katty Rettura 01/21/2018 1 [facility] (PPO) [id number] Dom Yap [id number] Katty Rettura Notes Date Note Type Note Provider Name and Address Organization Details Recorded Time 12/18/19 23 text/ht ml here for f/u visit - last seen as 09.26.22, reviewed note & labs - then seen by pulm 10.09 - reviewed note c pt pending see card 03.04 - Dr. Velasquez recheck chest ct 03.04next f/u c Dr. Dustin cat 03.04 tried advair - no sig help pt c/o both sob and palp -- not at rest but with exertion ---- does walk 2-3 miles/day fine without problem - but cannot knot picker cloth the pace to doug after her dog or go up stairs quickly reviewed older labs - no anemia Chance Monreal PA-C [address] [address], [place], [address], [facility] 12/18/2022 21:38:01 04/03/20 23 text/ht ml Katty [...] yearDiet: regularActivity: walk (exertion is a problem) DANYELLE BARBA MD [address], [address], [facility] 04/03/2023 09:54:10 07/25/20 23 text/ht ml CoughReported [...] pulm or cardiac conditions. Jovan Valentino MD [address] [address], [place], [address], [facility] 08/02/2023 08:18:19 04/08/20 24 text/ht ml Katty [...] the last year. Pt was seen by revenue integrity analyst as the pain located on the breast at 10 o'clock. Cleared from a revenue integrity analyst stand-point. Is not using ASA.OTC/Herbal supplements use: [...] a problem) -> pt works has a [employer] DANYELLE BARBA MD [address] [address], [place], [address], [facility] 04/08/2024 14:52:52 04/14/20 25 text/ht ml CoughReported bypatient.Severity:moderate Duration:symptoms lasting over 2 weeks Timing:better Context:non-smoker Modifying Factors:OTC medication Associated Symptoms:no fever; no chills; no chest pain; no heartburn; no nausea; no vomiting; no edema; no agitation; no wheezing; no post nasal dripNotes:Symptoms started March 28 and with a upper respiratory infection. Cough has improved but still present. No longer wheezing. She is following with pulm has a CT scan of the lungs scheduled on 04/16. Will be seen on the 04/26. Has been taking nightquill, mucinenex, ibuprofen and cough drops. Taking her inhaler as needed. Denies any sick contacts or recent travel. Katty Gleason is a 49 year old F who presented to the clinic for her annual exam. Pt denies any emergency room visits or hospitalizations in the last year. Complaints: Pt has been having pain in the left side of the chest wall pain for the last year two years. Pt was seen by revenue integrity analyst as the pain located on the breast at 10 o'clock. Cleared from a revenue integrity analyst stand-point. Pt has not followed up with MD on this pain Is not using ASA.OTC/Herbal supplements use: none Gynecologic HistoryPerimenopausalMenstrual cycle lasts 5-7 days, without spotting/clothsMenstrual cycle: irregular, last was 03/2025Sexually active: yesContraception: none+ abnormal paps, needed a biospySTD: HPV, HSVDenies cysts, fibroids Obstetric HistoryGravida: 3Para: 3AB: 0Livin vaginalComplications: none Drug use: neverEtoh use: on the weekends, when out at dinnertobacco use: younger stopped at 21spf/derm: uses Dental: every 6 monthsEye: once a yearDiet: regularActivity: walk (exertion is a problem) -> pt works has a [employer] DANYELLE BARBA MD [address] [address], [place], [address], [facility] 04/14/2025 08:51:12 OBGyn Episode No OBEpisode recorded.
== END 2025-04-27 15:56 | disposition home or self-care (01) ==
LOC: HO.HPS 15:12
PROVIDERS: PCP Student in an Organized Health Care Education/Training Program; Visit Provider Hospitalist
DX: R06.09 Other forms of dyspnea (principal); R00.0 Tachycardia, unspecified; R91.1 Solitary pulmonary nodule; J45.21 Mild intermittent asthma with (acute) exacerbation; R05.1 Acute cough
CPT/HCPCS: 99214